=== PATIENT | female | born 1965 | race Two or more races ===

== ENCOUNTER 2016-05-20 20:54 | Inpatient (IN) | payer OTHER ==
[~2016-05-20] VITALS: Ht 160 cm; Wt 99.4 kg
[~2016-05-20 20:54] MED LIST: ACET325T9 PO; DIAZ5TAB PO; GLIM2TAB2 PO; INSU100V13 SQ; METF10002 PO; OLME40TA PO; ONDA4TAB7 PO; OXYC-323 PO; SIMV40TA3 PO
[2016-05-20 21:28] LABS: BASO # 0.1 x10^3/uL (0.0-0.2); BASO % 1 % (0-3); EOS % 1 % (0-3); HEMATOCRIT 40.6 % (36.0-47.0); HEMOGLOBIN 13.6 g/dL (12.0-15.5); LYMPH # 3.2 x10^3/uL (1.0-4.8); LYMPH % 27 % (24-48); MEAN CORPUSCULAR HEMOGLOBIN 31 pg (25-35); MEAN CORPUSCULAR HGB CONC 33 g/dL (31-37); MEAN CORPUSCULAR VOLUME 92 fL (79-100); MONO % 6 % (0-9); NEUT % 66 % (31-73); PLATELET COUNT 221 x10^3/uL (140-400); RED BLOOD COUNT 4.44 x10^6/uL (3.50-5.40); RED CELL DISTRIBUTION WIDTH 12.3 % (11.5-14.5); WHITE BLOOD COUNT 12.2 x10^3/uL (4.0-11.0)
[2016-05-20 21:37] LABS: INR 1.2 (0.8-1.1); PROTHROMBIN TIME PATIENT 14.3 SEC (11.7-14.0)
[2016-05-20 22:03] LABS: BILIRUBIN,URINE NEGATIVE (NEG); GLUCOSE,URINE >=1000 mg/dL (NEG); NITRITE,URINE NEGATIVE (NEG); PH,URINE 6.5; PROTEIN,URINE NEGATIVE (NEG-TRACE)
[2016-05-20 22:08] LABS: BACTERIA,URINE 0 /HPF (0-FEW); RBC,URINE 0 /HPF (0-2); SQUAMOUS EPITHELIAL CELL,UR FEW /LPF
[2016-05-20 22:09] LABS: BARBITURATES NEG (NEG); BENZODIAZEPINES NEG (NEG); CANNABINOIDS NEG (NEG); COCAINE NEG (NEG); ETHANOL, URINE NEG (NEG); METHADONE NEG (NEG); OPIATES NEG (NEG); PHENCYCLIDINE NEG (NEG)
[2016-05-20 22:31] LABS: CALCIUM 8.9 mg/dL (8.5-10.1); CREATININE 0.8 mg/dL (0.6-1.0); GFR 75.6; POTASSIUM 4.1 mmol/L (3.5-5.1)
[2016-05-20 22:37] LABS: ALBUMIN 3.3 g/dL (3.4-5.0); ALBUMIN/GLOBULIN RATIO 0.8 (1.0-1.7); TOTAL BILIRUBIN 0.3 mg/dL (0.2-1.0); TOTAL PROTEIN 7.3 g/dL (6.4-8.2)
--- NOTE | 2016-05-20 22:41 | ED.ADGEN ---
Past Medical History Past Medical History: Diabetes-Type II, High Cholesterol, Hypertension Past Surgical History: Other Additional Past Surgical Histo: gall stone Alcohol Use: None Drug Use: None Adult General Chief Complaint Chief Complaint: CHEST PAIN HPI HPI Patient is a 50 year old woman, history of type 2 diabetes mellitus, hypertension, hyperlipidemia, who presents emergency department with multiple complaints. Patient states that yesterday she began experiencing headache, some blurry vision, and chest pain located in her left upper chest, she states that the pain is worse with deep inspiration, she states that she was also experiencing some tingling and numbness in her left arm, and some also in her left leg. She denies any injuries, states that she also some mild headache, and a cough, denies any productive sputum, complains of subjective fever at home, no chills, also complaining of increased urination and some pain with urination , no diarrhea, no back pain or flank pain, states that she is also having some shortness of breath. Has been ambulating without issue, denies recent travel or surgery, and history of DVT or PE, any swelling extremities. Patient states that her sugars have been running high at home, up to 500 yesterday presents report, were the 300s today. She states that the chest heaviness, and the other symptoms of been constant since it began yesterday morning. Review of Systems Review of Systems Constitutional: Denies fever or chills. [] Eyes: Denies change in visual acuity. [] HENT: Denies nasal congestion or sore throat. [] Respiratory: Cough, nonproductive, pain with deep inspiration. Cardiovascular: Denies edema. [] Left upper chest pain, worse with motion and easements ration, radiating into the left arm. Pain and numbness in the left leg. GI: Denies nausea, vomiting, bloody stools or diarrhea. [] Suprapubic abdominal pain. Frequency and urgency. : Denies dysuria. [] Musculoskeletal: Denies back pain or joint pain. [] Integument: Denies rash. [] Neurologic: Denies headache, focal weakness or sensory changes. [] Endocrine: Denies polyuria or polydipsia. [] Lymphatic: Denies swollen glands. [] Psychiatric: Denies depression or anxiety. [] Current Medications Current Medications Current Medications Medications (Trade) Dose Ordered Sig/Dima Start Time Stop Time Status Last Admin Dose Admin Acetaminophen (Tylenol) 650 mg PRN Q4HRS PRN 05/21/16 01:00 05/22/16 00:59 Aspirin (Children'S Aspirin) 324 mg 1X ONCE 05/21/16 01:00 05/21/16 01:01 DC 05/21/16 00:43 324 MG Dextrose 12.5 gm PRN Q15MIN PRN 05/21/16 01:00 Fentanyl Citrate (Fentanyl 2ml Vial) 25 mcg PRN Q15MIN PRN 05/21/16 00:30 05/22/16 00:29 Info (Do NOT chart on this entry -- for MONITORING) 1 each PRN DAILY PRN 05/20/16 23:15 05/22/16 23:14 Insulin Aspart (Novolog) 0-5 UNITS TIDWMEALS 05/21/16 08:00 Iohexol (Omnipaque 350 Mg/ml) 90 ml 1X ONCE 05/20/16 23:30 05/20/16 23:31 DC Nitroglycerin (Nitrostat) 0.4 mg PRN Q5MIN PRN 05/21/16 01:00 Ondansetron HCl (Zofran) 4 mg PRN Q8HRS PRN 05/21/16 01:00 05/22/16 00:59 Allergies Allergies Allergies Coded Allergies Type Severity Reaction Last Updated Verified No Known Drug Allergies 11/04/15 No Physical Exam Physical Exam Constitutional: Well developed, well nourished, no acute distress, non-toxic appearance. [] HENT: Normocephalic, atraumatic, bilateral external ears normal, oropharynx moist, no oral exudates, nose normal. [] Eyes: PERRLA, EOMI, conjunctiva normal, no discharge. [] Neck: Normal range of motion, no tenderness, supple, no stridor. [] Cardiovascular:Heart rate regular rhythm, no murmur , S1, S2, no rubs or gallops. Patient with chest wall tenderness, which is reproducing her pain with palpation. [] Lungs & Thorax: Bilateral breath sounds clear to auscultation, no wheezing, rhonchi, rales. [] Abdomen: Bowel sounds normal, obese, soft, no tenderness, no rebound, rigidity, no guarding no masses, no pulsatile masses. [] Skin: Warm, dry, no erythema, no rash. [] Back: No tenderness, no CVA tenderness. [] Extremities: No tenderness, no cyanosis, no clubbing, ROM intact, no edema. [] Neurologic: Alert and oriented X 3, normal motor function, 5 out of 5 strength with normal fine motor control in all extremities, patient of lanes of decreased sensation in the left arm and left leg throughout, normal sensation and motion of the right upper and lower extremity. Psychologic: Affect normal, judgement normal, mood normal. [] Current Patient Data Vital Signs Vital Signs Date Time Temp Pulse Resp B/P Pulse Ox O2 Delivery O2 Flow Rate FiO2 05/21/16 00:45 48 16 139/63 98 Room Air 05/20/16 23:45 1 05/20/16 21:00 97.8 97.8 Lab Values Laboratory Tests Test 05/20/16 21:20 05/20/16 21:55 White Blood Count 12.2x10^3/uL (4.0-11.0) H Red Blood Count 4.44x10^6/uL (3.50-5.40) Hemoglobin 13.6g/dL (12.0-15.5) Hematocrit 40.6% (36.0-47.0) Mean Corpuscular Volume 92fL (79-100) Mean Corpuscular Hemoglobin 31pg (25-35) Mean Corpuscular Hemoglobin Concent 33g/dL (31-37) Red Cell Distribution Width 12.3% (11.5-14.5) Platelet Count 221x10^3/uL (140-400) Neutrophils (%) (Auto) 66% (31-73) Lymphocytes (%) (Auto) 27% (24-48) Monocytes (%) (Auto) 6% (0-9) Eosinophils (%) (Auto) 1% (0-3) Basophils (%) (Auto) 1% (0-3) Neutrophils # (Auto) 8.0x10^3uL (1.8-7.7) H Lymphocytes # (Auto) 3.2x10^3/uL (1.0-4.8) Monocytes # (Auto) 0.7x10^3/uL (0.0-1.1) Eosinophils # (Auto) 0.1x10^3/uL (0.0-0.7) Basophils # (Auto) 0.1x10^3/uL (0.0-0.2) Prothrombin Time 14.3SEC (11.7-14.0) H Prothrombin Time INR 1.2 (0.8-1.1) H PTT 32SEC (24-38) Sodium Level 140mmol/L (136-145) Potassium Level 4.1mmol/L (3.5-5.1) Chloride Level 102mmol/L (98-107) Carbon Dioxide Level 30mmol/L (21-32) Anion Gap 8 (6-14) Blood Urea Nitrogen 16mg/dL (7-20) Creatinine 0.8mg/dL (0.6-1.0) Estimated GFR (Cockcroft-Gault) 75.6 BUN/Creatinine Ratio 20 (6-20) Glucose Level 410mg/dL (70-99) H Calcium Level 8.9mg/dL (8.5-10.1) Total Bilirubin 0.3mg/dL (0.2-1.0) Aspartate Amino Transferase (AST) 62U/L (15-37) H Alanine Aminotransferase (ALT) 133U/L (14-59) H Alkaline Phosphatase 119U/L (46-116) H Troponin I Quantitative < 0.017ng/mL (0.000-0.055) ON-Ksn-W-Type Natriuretic Peptide 41pg/mL (0-124) Total Protein 7.3g/dL (6.4-8.2) Albumin 3.3g/dL (3.4-5.0) L Albumin/Globulin Ratio 0.8 (1.0-1.7) L Lipase 276U/L (73-393) Urine Collection Type Unknown Urine Color Yellow Urine Clarity Clear Urine pH 6.5 Urine Specific Renner >=1.030 Urine Protein Negativemg/dL (NEG-TRACE) Urine Glucose (UA) >=1000mg/dL (NEG) Urine Ketones (Stick) Negativemg/dL (NEG) Urine Blood Negative (NEG) Urine Nitrite Negative (NEG) Urine Bilirubin Negative (NEG) Urine Urobilinogen Dipstick 1.0mg/dL (0.2 mg/dL) Urine Leukocyte Esterase Small (NEG) Urine RBC 0/HPF (0-2) Urine WBC 5-10/HPF (0-4) Urine Squamous Epithelial Cells Few/LPF Urine Bacteria 0/HPF (0-FEW) Urine Opiates Screen Neg (NEG) Urine Methadone Screen Neg (NEG) Urine Barbiturates Neg (NEG) Urine Phencyclidine Screen Neg (NEG) Urine Amphetamine/Methamphetamine Neg (NEG) Urine Benzodiazepines Screen Neg (NEG) Urine Cocaine Screen Neg (NEG) Urine Cannabinoids Screen Neg (NEG) Urine Ethyl Alcohol Neg (NEG) Laboratory Tests 05/20/16 21:20 Laboratory Tests 05/20/16 21:20 EKG EKG EC2103: Sinus rhythm, heart rate 54 bpm, left axis deviation, QTC of 387, ND of 144, QRS of 94, T-wave inversions noted in lead V3, aside from left axis deviation, no ST elevations or depressions, abnormal ECG, does not meet STEMI criteria. As interpreted by me. Radiology/Procedures Radiology/Procedures [] [facility] [address] [place] [address] IMAGING REPORT Signed PATIENT: FREDI POOL I ACCOUNT: [id number] : 1965 LOCATION: ER AGE: 50 SEX: F EXAM STATUS: REG ER ORD. PHYSICIAN: CHINEDU JASSO DO REASON: chest pain/left upper left lower extremity numbness/rule out dissection PROCEDURE: CTA CHEST ABD PELVIS PROCEDURE CT angiogram chest abdomen and pelvis with and without contrast. HISTORY Left chest pain, left arm and left leg numbness, tingling. TECHNIQUE Helical CT imaging of the chest abdomen and pelvis is performed before and after 90 cc Omnipaque 350 IV contrast using angiogram protocol. 3D MIP and volume rendering reconstructions of the aorta performed. PQRS: One or more the following individualized dose reduction techniques were utilized for the study: 1. Automated exposure control. 2. Adjustment of the mA and/or kV according to patient size. 3. Use of iterative reconstruction technique. COMPARISON None. FINDINGS On the precontrast images, no intramural hematoma is seen in the aorta. Small amount of contrast is seen in the upper collecting system of the kidneys but not in the renal parenchyma, correlate to other recent imaging. Aortic arch branches are patent. There is pulsation artifact of the aortic root. There is no thoracic or abdominal aortic dissection. The thoracic aorta is normal caliber. Abdominal aorta branches are patent. No significant narrowing of the iliac arteries. Common femoral and is visualized superficial femoral and profunda arteries are patent. Minimal atherosclerotic disease of the distal abdominal aorta just above the bifurcation. There is a 7 millimeter hypodense left thyroid nodule. No adenopathy in the chest. Cardiac size upper limits of normal, no pericardial effusion. No pleural effusion. The central airways are patent. Respiratory motion artifact. Mild dependent atelectasis in the lower lobes. Mild fatty infiltration of the liver. There is hepatomegaly or normal variant Reidel lobe, craniocaudal dimension 23.7 cm. Cholecystectomy. The spleen, pancreas, adrenal glands, and kidneys are normal. No obvious abnormality of the stomach. Evaluation of bowel may be limited without oral contrast. There is a large fat containing periumbilical hernia. No dilated small bowel. Moderate stool throughout the colon. No evidence of colitis. No secondary signs of appendicitis. Urinary bladder is not thick walled. Ovaries are symmetric. Uterus homogeneous. No pelvic free fluid. Degenerative endplate spurring in the thoracic spine. No compression fracture is seen. IMPRESSION 1. The aorta is normal caliber. There is no dissection. 2. 7 millimeter left thyroid nodule. 3. Mild fatty infiltration of the liver. Hepatomegaly versus normal variant Reidel lobe. 4. Large fat containing periumbilical hernia. 5. Moderate colon stool volume. Electronically signed by: Marito Sheehan MD (May 21, 2016 00:01:08) DICTATED and SIGNED BY: MARITO SHEEHAN MD DATE: 05/21/16 0001 CC: MARIANO SMITH APRN; CHINEDU JASSO DO ~ Impressions: [facility] [address] [place] [address] IMAGING REPORT Signed PATIENT: FREDI POOL I ACCOUNT: [id number] : 1965 LOCATION: ER AGE: 50 SEX: F EXAM STATUS: REG ER ORD. PHYSICIAN: CHINEDU JASSO DO REASON: Larm/leg numbness/SOLORZANO PROCEDURE: HEAD WO CONTRAST PROCEDURE CT head without intravenous contrast. HISTORY Left chest arm and leg pain beginning tonight. Headache and numbness. TECHNIQUE Axial images are obtained of the head from the skull base through the vertex without IV contrast Exposure: One or more of the following individualized dose reduction techniques were utilized for this examination: 1. Automated exposure control. 2. Adjustment of the mA and/or kV according to patient size. 3. Use of iterative reconstruction technique. COMPARISON CT head August 25, 2009. FINDINGS The ventricles are appropriate in size, shape, and location for the patient's age.No obvious intracranial mass, mass-effect, midline shift, hemorrhage or obvious acute infarction is identified.Basilar cisterns are patent. Bone windows demonstrate no acute calvarial abnormality.The visualized paranasal sinuses appear clear. IMPRESSION No acute intracranial process. Please note that CT can be relatively insensitive to acute ischemic infarction for up to 24 hours after symptom onset. Electronically signed by: Mp Hatfield MD (May 20, 2016 22:47:36) DICTATED and SIGNED BY: MP HATFIELD MD DATE: 05/20/16 2247 CC: MARIANO SMITH APRN; CHINEDU JASSO DO ~ Course & Med Decision Making Course & Med Decision Making Pertinent Labs and Imaging studies reviewed. (See chart for details) Due to patient's complaints of both neurological abnormalities, and chest pain, CT of the head initially obtained along with chest x-ray which was unremarkable. Pulses equal bilaterally, patient does have pain radiating from the chest through to the back, although x-ray is unremarkable, with this complaint, with the neurologic complaints, CT of the chest abdomen pelvis ordered to rule out possible dissection. Patient's blood pressures remained stable in the emergency department. I did discuss this with patient and family and they're in agreement. CT of the chest abdomen pelvis did not reveal any evidence of acute abnormalities. I did review these findings with patient and family, patient has received aspirin at this point, is ordered pain medication, denies any new or different symptoms. She is agreeable for admission to the hospital for continued evaluation with cardiology, Dr. Espinoza consult at after discussing with Dr. Lizarraga of internal medicine, who accepted the patient to her service as a full admission to the cardiac telemetry floor. After this discussion, patient's then stated to me that the patient's father several days ago, and the occurred earlier today, which may be contributing to the symptoms that she is experiencing. As the patient has not previously had a cardiac evaluation, and has a medical history complicated by hypertension, and diabetes mellitus, we'll proceed with plan as above. At this time the patient is resting comfortably. Remained stable on the monitor. Dragon Disclaimer Dragon Disclaimer This electronic medical record was generated, in whole or in part, using a voice recognition dictation system. Departure Impression: Primary Impression: Chest pain Additional Impressions: Dizziness Extremity numbness Disposition: ADMITTED INPATIENT Admitting Physician: Sadiq Robles Condition: IMPROVED Problem Qualifiers Primary Impression: Chest pain Chest pain type: unspecified Qualified Code: R07.9 - Chest pain, unspecified CHINEDU JASSO DO May 20, 2016 22:41
--- NOTE | 2016-05-20 22:48 | RAD ---
PROCEDURE CT head without intravenous contrast. HISTORY Left chest arm and leg pain beginning tonight. Headache and numbness. TECHNIQUE Axial images are obtained of the head from the skull base through the vertex without IV contrast Exposure: One or more of the following individualized dose reduction techniques were utilized for this examination: 1. Automated exposure control. 2. Adjustment of the mA and/or kV according to patient size. 3. Use of iterative reconstruction technique. COMPARISON CT head August 25, 2009. FINDINGS The ventricles are appropriate in size, shape, and location for the patient's age.No obvious intracranial mass, mass-effect, midline shift, hemorrhage or obvious acute infarction is identified.Basilar cisterns are patent. Bone windows demonstrate no acute calvarial abnormality.The visualized paranasal sinuses appear clear. IMPRESSION No acute intracranial process. Please note that CT can be relatively insensitive to acute ischemic infarction for up to 24 hours after symptom onset. Electronically signed by: Mp Anand MD (May 20, 2016 22:47:36)
[2016-05-20] MEDS ORDERED: CONTRAST GIVEN MC PRN (23:15)
[2016-05-20] MEDS ORDERED: IOHEXOL 350 MG/ML 100ML VIAL. IV ONE (23:30)
[2016-05-21] VITALS (7 sets, daily range): BP systolic 102–156; BP diastolic 51–85
--- NOTE | 2016-05-21 00:02 | RAD ---
PROCEDURE CT angiogram chest abdomen and pelvis with and without contrast. HISTORY Left chest pain, left arm and left leg numbness, tingling. TECHNIQUE Helical CT imaging of the chest abdomen and pelvis is performed before and after 90 cc Omnipaque 350 IV contrast using angiogram protocol. 3D MIP and volume rendering reconstructions of the aorta performed. PQRS: One or more the following individualized dose reduction techniques were utilized for the study: 1. Automated exposure control. 2. Adjustment of the mA and/or kV according to patient size. 3. Use of iterative reconstruction technique. COMPARISON None. FINDINGS On the precontrast images, no intramural hematoma is seen in the aorta. Small amount of contrast is seen in the upper collecting system of the kidneys but not in the renal parenchyma, correlate to other recent imaging. Aortic arch branches are patent. There is pulsation artifact of the aortic root. There is no thoracic or abdominal aortic dissection. The thoracic aorta is normal caliber. Abdominal aorta branches are patent. No significant narrowing of the iliac arteries. Common femoral and is visualized superficial femoral and profunda arteries are patent. Minimal atherosclerotic disease of the distal abdominal aorta just above the bifurcation. There is a 7 millimeter hypodense left thyroid nodule. No adenopathy in the chest. Cardiac size upper limits of normal, no pericardial effusion. No pleural effusion. The central airways are patent. Respiratory motion artifact. Mild dependent atelectasis in the lower lobes. Mild fatty infiltration of the liver. There is hepatomegaly or normal variant Reidel lobe, craniocaudal dimension 23.7 cm. Cholecystectomy. The spleen, pancreas, adrenal glands, and kidneys are normal. No obvious abnormality of the stomach. Evaluation of bowel may be limited without oral contrast. There is a large fat containing periumbilical hernia. No dilated small bowel. Moderate stool throughout the colon. No evidence of colitis. No secondary signs of appendicitis. Urinary bladder is not thick walled. Ovaries are symmetric. Uterus homogeneous. No pelvic free fluid. Degenerative endplate spurring in the thoracic spine. No compression fracture is seen. IMPRESSION 1. The aorta is normal caliber. There is no dissection. 2. 7 millimeter left thyroid nodule. 3. Mild fatty infiltration of the liver. Hepatomegaly versus normal variant Reidel lobe. 4. Large fat containing periumbilical hernia. 5. Moderate colon stool volume. Electronically signed by: Marito Sheehan MD (May 21, 2016 00:01:08)
[2016-05-21] MEDS ORDERED: NITROGLYCERIN SUBLINGUAL 0.4 MG BOTTLE OF 25. SL PRN ×2 (00:30→01:00)
[2016-05-21] MEDS ORDERED: FENTANYL PF 100 MCG/2 ML VIAL. IV PRN (00:30)
[2016-05-21] MEDS ORDERED: ASPIRIN 81 MG TAB.CHEW PO ONE (01:00)
[2016-05-21] MEDS ORDERED: ONDANSETRON PF 4 MG/2 ML VIAL. IV PRN ×2 (01:00→10:30)
[2016-05-21] MEDS ORDERED: ACETAMINOPHEN 325 MG TABLET. PO PRN ×2 (01:00→10:30)
[2016-05-21] MEDS ORDERED: DEXTROSE 50% 25 GM / 50ML DISP.SYRIN. IV PRN ×2 (01:00→10:30)
[2016-05-21] MEDS ORDERED: ATOR10TA60 PO (01:48)
[2016-05-21] MEDS ORDERED: AZIT250T6 PO (01:50)
[2016-05-21] MEDS ORDERED: INSU100I27 SQ ×2 (01:53)
[2016-05-21] MEDS ORDERED: SITA100T PO (01:53)
[2016-05-21] MEDS ORDERED: INFLUENZA VAX SCREEN BY RX. MC ONE (02:00)
[2016-05-21] MEDS ORDERED: PNEUMOCOCCAL VAX SCREEN BY RX. MC ONE (02:00)
--- NOTE | 2016-05-21 02:02 | ACF ---
Admission Forms Criteria CARDIOLOGY GRG Clinical Indications for Admission to Inpatient Care ( Place 'X' for any and all applicable criteria): Hospital admission is needed for appropriate care of the patient because of ANY ONE of the following (1): [ ] I. Hemodynamic instability as indicated by ALL of the following (1)(2)(3) (4)(5) [ ]a) Vital signs or other findings not as expected for chronic patient condition or baseline [ ]b) Instability indicated by ANY ONE of the following: [ ]i) Hypotension [ ]ii) Symptomatic Tachycardia unresponsive to treatment ( e.g., analgesia, fluids, sedation as indicated) [ ]iii) Inadequate perfusion indicated by ANY ONE of the following: [ ] 1) Lactic acidosis (> 2 mmol/L) [ ] 2) New abnormal capillary refill (> 3 seconds) [ ] 3) Reduced urine output [ ] 4) New altered mental status [ ]iv) Orthostatic vital sign changes unresponsive to treatment (e.g., fluids) [ ]v) IV inotropic or vasopressor medication required to maintain adequate blood pressure or perfusion [ ] II. Severe heart failure as indicated by ANY ONE of the following(17)(18) [ ]a) Respiratory distress [ ]b) Hypotension [ ]c) Anasarca (refractory to outpatient therapy) [ ]d) Cardiac arrhythmias of immediate concern [ ]e) Myocardial ischemia [ ] III. Cardiac arrhythmias or findings of immediate concern indicated by ANY ONE of the following (19)(20): [ ] a) Heart rhythms that are inherently dangerous or unstable indicated by ANY ONE of the following (21)(22)(23): [ ] i) Resuscitated ventricular fibrillation or cardiac arrest [ ] ii) Ventricular escape rhythm [ ] iii) Sustained ventricular tachycardia (30 seconds or more of ventricular rhythm at greater than 100 beats per minute) [ ] iv) Nonsustained ventricular tachycardia and ANY ONE of the following: [ ] 1) Suspected cardiac ischemia as cause or consequence of ventricular tachycardia [ ] 2) In setting of acute myocarditis [ ] b) Unstable cardiac conduction defects indicated by ANY ONE of the following(23)(24)(25) [ ] i) Type II second-degree atrioventricular block [ ]ii) Third-degree atrioventricular block [ ]iii) New-onset left bundle branch block with suspected myocardial ischemia [ ]c) Any heart rhythm and ANY ONE of the following (21)(22)(26)(27) (28) [ ] i) Continuous long-term ECG monitoring needed (e.g., initiation of drug requiring monitoring for more than 24 hours) [ ] ii) Patient has automatic implanted cardioverter defibrillator that is repeatedly firing, malfunctioning, or in need of immediate adjustment of settings beyond the scope of ambulatory or observation care [ ]d) Heart rhythms of concern due to ANY ONE of the following: [ ] i) Hypotension [ ] ii) Respiratory distress [ ] iii) Association with other significant symptoms (e.g., bradycardia with syncope or ongoing dizziness, supraventricular tachycardia with chest pain (14)(15)(17) [ ] IV. Monitoring for cardiac contusion beyond the scope of observation care needed [A](30)(31)(32) [ ] V. Surgical or device complication (e.g., valve replacement complication , pacemaker dysfunction) (35)(41)(44)(45)(46) [ ] . Inpatient palliative care needed. [B](49) Also use Inpatient Palliative Care Criteria [ ] VII. Nonbacterial thrombotic (marantic) endocarditis (36)(43)(47)(48) [ X] VIII. Cardiology condition, symptom, or finding for which emergency and observation care has failed or are not considered appropriate. [ ] IX. Acute valvular disease requiring inpatient as indicated by ANY ONE of the following (41) [ ]a) Acute valvular regurgitation (42) [ ]b) Noninfectious valvulitis (43) [ ]c) Obstructive valve thrombosis [ ]d) Paravalvular leak [ ]e) Other significant valvular disorder remaining after emergency or observation level of care (as appropriate) [ ]X. Pericardial disease requiring inpatient treatment as indicated by ANY ONE of the following (33)(34)(35)(36)(37) [ ]a) Suspected tamponade (38)(39)(40) [ ]b) Hemopericardium [ ]c) Other significant pericardial disorder remaining after emergency or observation level of care (as appropriate) [ ] XI. Cardiac ischemia beyond scope of emergency and observation care. [ ] XII. Hypertension requiring inpatient treatment as indicated by ANY ONE of the following (6)(7)(8) [ ]a) SBP greater than 220 mm Hg or DBP greater than 120 mmHg despite treatment [ ]b) SBP greater than 140 mm Hg or DBP greater than 100 mm Hg with evidence of acute end organ damage as indicated by ANY ONE of the following [ ] i) Encephalopathy [ ] ii) Acute renal failure as indicated by new onset of ANY ONE of the following (9)(10)(11)(12)(13) [ ]1) 3-fold rise in serum creatinine from baseline [ ]2) Serum creatinine greater than 4 mg/dL ( 354 micromoles/L) with acute rise greater than 0.5 mg/dL (44.2 micromoles/L) [ ]3) Reduction of more than 75% in estimated glomerular filtration rate from baseline [ ]4) Estimated glomerular filtration rate less than 35 mL/min/1.73m2 (0.59 mL/sec/1.73m2) in child up to 18 years of age [ ]5) Cessation of urine output indicated by ALL of the following [ ]A. Adequate volume status [ ]B. Inadequate urine output as indicated by ANY ONE of the following [ ]a. Urine output less than 0.3 mL/kg/hr for 24 hours [ ]b. Anuria (urine output less than 0.1 mL/kg/hr) for 12 hours [ ] iii) Aortic dissection [ ] iv) Myocardial Ischemia [ ] v) Left ventricular heart failure [ ]vi) Retinal Hemorrhage [ ]vii) Other significant finding [ ]c) Hypertension in child requiring inpatient treatment as indicated by ALL of the following(14)(15)(16) [ ] i) Outpatient treatment not effective, not available, or not appropriate [ ]ii) SBP or DBP greater than 95th percentile for age [ ]iii) Evidence of acute end organ damage as indicated by ANY ONE of the following [ ]1) Altered mental status [ ]2) Acute renal failure as indicated by new onset of ANY ONE of the following(9)(10)(11)(12)(13) [ ]A. 3-fold rise in serum creatinine from baseline [ ]B. Serum creatinine greater than 4 mg/dL (354 micromoles/L) with acute rise greater than 0.5 mg/dL (44.2 micromoles/L) [ ]C. Reduction of more than 75% in estimated glomerular filtration rate from baseline [ ]D. Estimated glomerular filtration rate less than 35 mL/min/1.73m2 (0.59 mL/sec/1.73m2) in child up to 18 years of age [ ]E. Cessation of urine output indicated by ALL of the following [ ]a. Adequate volume status [ ]b. Inadequate urine output as indicated by ANY ONE of the following [ ]i) Urine output less than 0.3 mL/kg/hr for 24 hours [ ]ii) Anuria ( urine output less than 0.1 mL/kg/hr) for 12 hours [ ]3) Severe headache [ ]4) Visual disturbance [ ]5) Retinal hemorrhage [ ]6) Other significant finding [ ]XIII. Complications of transplanted heart indicated by ANY ONE of the following(61): [ ]a) Acute graft rejection requiring inpatient management (eg, intravenous immunosuppression)(62)(63) [ ]b) Acute graft heart failure indicated by ANY ONE of the following(64): [ ]i) Hemodynamic instability [ ]ii) Cardiac arrhythmias of immediate concern [ ]iii) Pulmonary edema that is very severe (eg, mechanical ventilation needed, imminent or likely, need for 100% oxygen to keep oxygen saturation above 90%) [ ]iv) Pulmonary edema that is persistent as indicated by ALL of the following: [ ]1) New need for oxygen therapy to keep oxygen saturation above 90% (or increased FiO2 need from baseline) [ ]2) Has not improved sufficiently with emergency department or observation care IV diuretics or other heart failure treatments[E] [ ]v) Altered mental status that is severe or persistent [ ]vi) Increased creatinine (new on laboratory test) with reduction of more than 50% in estimated glomerular filtration rate from baseline [ ]vii) Progressively (ongoing) rising creatinine (known from past laboratory test) with reduction of more than 25% in estimated glomerular filtration rate from baseline [ ]viii) Acute renal failure [ ]ix) Acute peripheral ischemia (eg, examination shows pulseless, cool, mottled, or cyanotic extremity) [ ]x) Pulmonary artery catheter monitoring needed [ ]xi) Other sign or symptom of heart failure requiring inpatient treatment (ie, too severe or not responsive to outpatient and observation care treatment) [ ]c) Infection requiring inpatient management (eg, Hemodynamic instability, need for intravenous antimicrobial treatment)(66)(67)(68)(69)(70) [ ]d) Cardiac allograft vasculopathy requiring inpatient management ( eg evidence of cardiac ischemia)(71) [ ]e) Other complication of transplanted heart (eg, stroke, severe pulmonary hypertension, severe valvular dysfunction) requiring inpatient management(72) The original [facility] content created by [facility] has been revised. The portions of the content which have been revised are identified through the use of italic text or in bold, and [facility] has neither reviewed nor approved the modified material. All other unmodified content is copyright [facility]. Please see references footnoted in the original [facility] edition 2016 Admission Criteria Met?: Yes ALECIA AVILA May 21, 2016 02:02
--- NOTE | 2016-05-21 02:12 | EKG ---
[facility] [address] [place] [address] Test Date: 2016-05-20 Test Time: 21:04:27 Pat Name: FREDI POOL Department: Room: Gender: F Network Operations Manager: : 1965 Requested By: CHINEDU JASSO Order Number: [id number] Reading MD: Measurements Intervals Dike Rate: 54 P: 45 OH: 144 QRS: -28 QRSD: 94 T: 8 QT: 402 QTc: 387 Interpretive Statements SINUS RHYTHM LEFTWARD AXIS R-S TRANSITION ZONE IN V LEADS DISPLACED TO THE LEFT RI6.01 Unconfirmed report No previous ECG available for comparison
[2016-05-21] MEDS ORDERED: INSULIN ASPART 300 UNITS/3 ML INSULN.PEN SQ SCH (08:00)
--- NOTE | 2016-05-21 08:19 | RAD ---
Indication chest pain. A single view of the chest was obtained and is compared to a study 08/24/2009. Heart size is at the upper limits of normal. There is no congestive heart failure. A focal infiltrate is not seen. There are perhaps tiny pleural effusions. There is no pneumothorax. There is a healed right rib fracture. IMPRESSION: No acute finding apparent in the chest
[2016-05-21] MEDS ORDERED: FLU VACC QUAD 2016-17 (36MOS+)/PF 0.5 ML SYRINGE. VAX IM ONE (09:00)
[2016-05-21] MEDS ORDERED: PNEUMOC CONJ VACC 23-VALENT 0.5 ML VIAL. VAX IM ONE (09:00)
[2016-05-21] MEDS: LINAGLIPTIN 5 MG TABLET PO SCH (12:44)
[2016-05-21] MEDS: ASPIRIN 81 MG TAB.CHEW PO SCH (12:45)
[2016-05-21] MEDS: LOSARTAN POTASSIUM 50 MG TABLET. PO SCH (12:45)
[2016-05-21] MEDS: INSULIN ASPART 300 UNITS/3 ML INSULN.PEN SQ SCH ×5 (12:49→20:15)
[2016-05-21] MEDS: INSULIN DETEMIR 300 UNITS/3 ML INSULN.PEN. SQ SCH ×2 (12:51→20:16)
--- NOTE | 2016-05-21 13:39 | PDOC1 ---
History and Physical Date of Admission Date of Admission 05/21/16 Identification/Chief Complaint Chief Complaint chest pain Problems: Source Source: Caregiver, Chart review, Patient History of Present Illness History of Present Illness HPI HPI Patient is a 50 year old woman, history of type 2 diabetes mellitus, hypertension, hyperlipidemia, comes to ER for chest pain for 2 days. Her dad and was buried yesterday. Indonesian speaking. translated, saying she started to feel left side chest pain, heavy, no radiating, but left fingers numbness, wo nausea, diaphoresis. had some sob and cough. The pain happenes any time. + tenderness. not controlled Dm2 ON LEVEmir 25/20u bid. has GERD, but saying they are different pain. Past Medical History Cardiovascular: HTN Endocrine: Diabetes Past Surgical History Past Surgical History: Cholecystectomy Current Problem List Problem List Problems Medical Problems: (1) Chest pain Status: Acute (2) Dizziness Status: Acute (3) Extremity numbness Status: Acute Current Medications Current Medications Current Medications Medications (Trade) Dose Ordered Sig/Dima Start Time Stop Time Status Last Admin Dose Admin Acetaminophen (Tylenol) 650 mg PRN Q6HRS PRN 05/21/16 10:30 Aspirin (Children'S Aspirin) 81 mg [id number] 05/21/16 11:00 05/21/16 12:45 81 MG Atorvastatin Calcium (Lipitor) 10 mg HS 05/21/16 21:00 Dextrose 12.5 gm PRN Q15MIN PRN 05/21/16 10:30 Fentanyl Citrate (Fentanyl 2ml Vial) 25 mcg PRN Q15MIN PRN 05/21/16 00:30 05/22/16 00:29 Glimepiride (Amaryl) 4 mg BID 05/21/16 21:00 Influenza Virus Vaccine Quadrival (Fluarix Quad [id number] Syringe) 0.5 ml ONCE ONCE 05/21/16 09:00 05/21/16 09:01 DC Info (Do NOT chart on this entry -- for MONITORING) 1 each PRN DAILY PRN 05/20/16 23:15 05/22/16 23:14 Info (Do NOT chart on this placeholder) 1X ONCE 05/21/16 02:00 05/21/16 02:01 UNV Insulin Aspart (Novolog) 5 units TIDAC 05/21/16 11:30 05/21/16 12:49 5 UNITS Insulin Detemir (Levemir) 25 units BID 05/21/16 11:00 05/21/16 12:51 25 UNITS Iohexol (Omnipaque 350 Mg/ml) 90 ml 1X ONCE 05/20/16 23:30 05/20/16 23:31 DC Linagliptin (Tradjenta) 5 mg DAILY 05/21/16 11:00 05/21/16 12:44 5 MG Losartan Potassium (Cozaar) 100 mg DAILY 05/21/16 11:00 05/21/16 12:45 100 MG Nitroglycerin (Nitrostat) 0.4 mg PRN Q5MIN PRN 05/21/16 01:00 Ondansetron HCl (Zofran) 4 mg PRN Q6HRS PRN 05/21/16 10:30 Pneumococcal Polyvalent Vaccine (Do NOT chart on this placeholder) 1X ONCE 05/21/16 02:00 05/21/16 02:01 UNV Pneumococcal Polyvalent Vaccine (Pneumovax 23) 0.5 ml ONCE ONCE 05/21/16 09:00 05/21/16 09:01 DC Allergies Allergies Allergies Coded Allergies Type Severity Reaction Last Updated Verified No Known Drug Allergies 11/04/15 No ROS Review of System CONSTITUTIONAL: No fever or chills EYES: No recent changes SKIN: No rash or itching CARDIOVASCULAR: No chest pain, syncope, palpitations, or edema RESPIRATORY: No SOB or cough GASTROINTESTINAL: No nausea, vomiting or abdominal pain NEUROLOGICAL: No headaches or weakness ENDOCRINE: No cold or heat intolerance GENITOURINARY: No urgency or frequency of urination MUSCULOSKELETAL: No back pain or joint pain LYMPHATICS: No enlarged lymph nodes PSYCHIATRIC: No anxiety or depression Physical Exam Physical Exam GEN.: No apparent distress. Alert and oriented. HEENT: Head is normocephalic, atraumatic NECK: Supple. LUNGS: Clear to auscultation. left upper chest tenderness HEART: RRR, S1, S2 present. Peripheral pulses intact ABDOMEN: Soft, nontender. Positive bowel sounds. EXTREMITIES: Without any cyanosis. NEUROLOGIC: Normal speech, normal tone PSYCHIATRIC: Normal affect, normal mood. SKIN: No ulcerations Vitals Vitals Vital Signs Date Time Temp Pulse Resp B/P Pulse Ox O2 Delivery O2 Flow Rate FiO2 05/21/16 12:45 64 134/63 05/21/16 10:47 97.2 18 100 Room Air 97.2 05/20/16 23:45 1 Labs Labs Laboratory Tests Test 05/20/16 21:20 05/20/16 21:55 05/21/16 02:45 05/21/16 08:00 White Blood Count 12.2x10^3/uL (4.0-11.0) Red Blood Count 4.44x10^6/uL (3.50-5.40) Hemoglobin 13.6g/dL (12.0-15.5) Hematocrit 40.6% (36.0-47.0) Mean Corpuscular Volume 92fL (79-100) Mean Corpuscular Hemoglobin 31pg (25-35) Mean Corpuscular Hemoglobin Concent 33g/dL (31-37) Red Cell Distribution Width 12.3% (11.5-14.5) Platelet Count 221x10^3/uL (140-400) Neutrophils (%) (Auto) 66% (31-73) Lymphocytes (%) (Auto) 27% (24-48) Monocytes (%) (Auto) 6% (0-9) Eosinophils (%) (Auto) 1% (0-3) Basophils (%) (Auto) 1% (0-3) Neutrophils # (Auto) 8.0x10^3uL (1.8-7.7) Lymphocytes # (Auto) 3.2x10^3/uL (1.0-4.8) Monocytes # (Auto) 0.7x10^3/uL (0.0-1.1) Eosinophils # (Auto) 0.1x10^3/uL (0.0-0.7) Basophils # (Auto) 0.1x10^3/uL (0.0-0.2) Prothrombin Time 14.3SEC (11.7-14.0) Prothromb Time International Ratio 1.2 (0.8-1.1) Activated Partial Thromboplast Time 32SEC (24-38) Sodium Level 140mmol/L (136-145) Potassium Level 4.1mmol/L (3.5-5.1) Chloride Level 102mmol/L (98-107) Carbon Dioxide Level 30mmol/L (21-32) Anion Gap 8 (6-14) Blood Urea Nitrogen 16mg/dL (7-20) Creatinine 0.8mg/dL (0.6-1.0) Estimated GFR (Cockcroft-Gault) 75.6 BUN/Creatinine Ratio 20 (6-20) Glucose Level 410mg/dL (70-99) Calcium Level 8.9mg/dL (8.5-10.1) Total Bilirubin 0.3mg/dL (0.2-1.0) Aspartate Amino Transf (AST/SGOT) 62U/L (15-37) Alanine Aminotransferase (ALT/SGPT) 133U/L (14-59) Alkaline Phosphatase 119U/L (46-116) Troponin I Quantitative < 0.017ng/mL (0.000-0.055) < 0.017ng/mL (0.000-0.055) < 0.017ng/mL (0.000-0.055) SD-Lil-F-Type Natriuretic Peptide 41pg/mL (0-124) Total Protein 7.3g/dL (6.4-8.2) Albumin 3.3g/dL (3.4-5.0) Albumin/Globulin Ratio 0.8 (1.0-1.7) Lipase 276U/L (73-393) Urine Collection Type Unknown Urine Color Yellow Urine Clarity Clear Urine pH 6.5 Urine Specific [place] >=1.030 Urine Protein Negativemg/dL (NEG-TRACE) Urine Glucose (UA) >=1000mg/dL (NEG) Urine Ketones (Stick) Negativemg/dL (NEG) Urine Blood Negative (NEG) Urine Nitrite Negative (NEG) Urine Bilirubin Negative (NEG) Urine Urobilinogen Dipstick 1.0mg/dL (0.2 mg/dL) Urine Leukocyte Esterase Small (NEG) Urine RBC 0/HPF (0-2) Urine WBC 5-10/HPF (0-4) Urine Squamous Epithelial Cells Few/LPF Urine Bacteria 0/HPF (0-FEW) Urine Opiates Screen Neg (NEG) Urine Methadone Screen Neg (NEG) Urine Barbiturates Neg (NEG) Urine Phencyclidine Screen Neg (NEG) Urine Amphetamine/Methamphetamine Neg (NEG) Urine Benzodiazepines Screen Neg (NEG) Urine Cocaine Screen Neg (NEG) Urine Cannabinoids Screen Neg (NEG) Urine Ethyl Alcohol Neg (NEG) Test 05/21/16 08:01 05/21/16 10:46 Glucose (Fingerstick) 230mg/dL (70-99) 290mg/dL (70-99) Laboratory Tests Test 05/20/16 21:20 05/20/16 21:55 05/21/16 02:45 05/21/16 08:00 White Blood Count 12.2x10^3/uL (4.0-11.0) Red Blood Count 4.44x10^6/uL (3.50-5.40) Hemoglobin 13.6g/dL (12.0-15.5) Hematocrit 40.6% (36.0-47.0) Mean Corpuscular Volume 92fL (79-100) Mean Corpuscular Hemoglobin 31pg (25-35) Mean Corpuscular Hemoglobin Concent 33g/dL (31-37) Red Cell Distribution Width 12.3% (11.5-14.5) Platelet Count 221x10^3/uL (140-400) Neutrophils (%) (Auto) 66% (31-73) Lymphocytes (%) (Auto) 27% (24-48) Monocytes (%) (Auto) 6% (0-9) Eosinophils (%) (Auto) 1% (0-3) Basophils (%) (Auto) 1% (0-3) Neutrophils # (Auto) 8.0x10^3uL (1.8-7.7) Lymphocytes # (Auto) 3.2x10^3/uL (1.0-4.8) Monocytes # (Auto) 0.7x10^3/uL (0.0-1.1) Eosinophils # (Auto) 0.1x10^3/uL (0.0-0.7) Basophils # (Auto) 0.1x10^3/uL (0.0-0.2) Prothrombin Time 14.3SEC (11.7-14.0) Prothromb Time International Ratio 1.2 (0.8-1.1) Activated Partial Thromboplast Time 32SEC (24-38) Sodium Level 140mmol/L (136-145) Potassium Level 4.1mmol/L (3.5-5.1) Chloride Level 102mmol/L (98-107) Carbon Dioxide Level 30mmol/L (21-32) Anion Gap 8 (6-14) Blood Urea Nitrogen 16mg/dL (7-20) Creatinine 0.8mg/dL (0.6-1.0) Estimated GFR (Cockcroft-Gault) 75.6 BUN/Creatinine Ratio 20 (6-20) Glucose Level 410mg/dL (70-99) Calcium Level 8.9mg/dL (8.5-10.1) Total Bilirubin 0.3mg/dL (0.2-1.0) Aspartate Amino Transf (AST/SGOT) 62U/L (15-37) Alanine Aminotransferase (ALT/SGPT) 133U/L (14-59) Alkaline Phosphatase 119U/L (46-116) Troponin I Quantitative < 0.017ng/mL (0.000-0.055) < 0.017ng/mL (0.000-0.055) < 0.017ng/mL (0.000-0.055) LX-Kqa-Q-Type Natriuretic Peptide 41pg/mL (0-124) Total Protein 7.3g/dL (6.4-8.2) Albumin 3.3g/dL (3.4-5.0) Albumin/Globulin Ratio 0.8 (1.0-1.7) Lipase 276U/L (73-393) Urine Collection Type Unknown Urine Color Yellow Urine Clarity Clear Urine pH 6.5 Urine Specific [place] >=1.030 Urine Protein Negativemg/dL (NEG-TRACE) Urine Glucose (UA) >=1000mg/dL (NEG) Urine Ketones (Stick) Negativemg/dL (NEG) Urine Blood Negative (NEG) Urine Nitrite Negative (NEG) Urine Bilirubin Negative (NEG) Urine Urobilinogen Dipstick 1.0mg/dL (0.2 mg/dL) Urine Leukocyte Esterase Small (NEG) Urine RBC 0/HPF (0-2) Urine WBC 5-10/HPF (0-4) Urine Squamous Epithelial Cells Few/LPF Urine Bacteria 0/HPF (0-FEW) Urine Opiates Screen Neg (NEG) Urine Methadone Screen Neg (NEG) Urine Barbiturates Neg (NEG) Urine Phencyclidine Screen Neg (NEG) Urine Amphetamine/Methamphetamine Neg (NEG) Urine Benzodiazepines Screen Neg (NEG) Urine Cocaine Screen Neg (NEG) Urine Cannabinoids Screen Neg (NEG) Urine Ethyl Alcohol Neg (NEG) Test 05/21/16 08:01 05/21/16 10:46 Glucose (Fingerstick) 230mg/dL (70-99) 290mg/dL (70-99) VTE Prophylaxis Ordered VTE Prophylaxis Devices: Yes VTE Pharmacological Prophylaxi: Yes Assessment/Plan Assessment/Plan 1. chest pain, likely 2/2 muscular pain 2. uncontrolled DM2 3. HTN 4. hld 5. sinus lawanda cardia, could be tachy at home 6. GERD 7. MORBID obesity 8. EARL 9. MILD malnutrition 10. SIRS wo infection 11. left thyroid nodule 7mm on CT plan: 1. fu with card, echo tmr 2. check lipid panel, cont lipitor 10mg for now check tsh, t4 CE neg 3. cont home meds, increase insulin levemir 25u bid, aspart 5u tid, SSI check hba1c cough meds dvt ppx GOPAL CORONEL MD May 21, 2016 13:39
[2016-05-21] MEDS ORDERED: ALBUTEROL SULFATE 2.5 MG/3 ML NEBU. NEB PRN (13:45)
[2016-05-21] MEDS ORDERED: hydrALAZINE 20 MG/ML VIAL. IVP PRN (13:45)
[2016-05-21] MEDS: GUAIFENESIN ER 600 MG TABLET.ER PO SCH ×2 (14:30→20:10)
--- NOTE | 2016-05-21 15:06 | PDOC2 ---
CONSULT Date of Consult Date of Consult DATE: 05/21/16 TIME: 14:50 Reason for Consult Reason for Consult: Chest Pain Referring Physician Referring Physician: Dr Robles Identification/Chief Complaint Chief Complaint Chest Pain History of Present Illness Reason for Visit: This pt is a pleasant 50 y o Lady that has no previous Hx of heart disease but is a diabetic with HTN for years. She has been under a lot of stress and her father and was buried yesterday. The pt has been having episodes of lightheadedness for some time but no LOC. For about 2 days she has been having some chest pains and at times it feels like a pounding in the chest and the left side of the chest is tender. The pt was admitted after coming to the ER for the chest pains. She has been bradycardic down to a rate of 43 since admission. Enzymes are negative, EKG no acute ST abnormality. She is having chest pains now with chest wall tenderness. Past Medical History Cardiovascular: HTN Endocrine: Diabetes Past Surgical History Past Surgical History: Cholecystectomy Current Problem List Problem List Problems Medical Problems: (1) Chest pain Status: Acute (2) Dizziness Status: Acute (3) Extremity numbness Status: Acute Current Medications Current Medications Current Medications Iohexol (Omnipaque 350 Mg/ml) 90 ml 1X ONCE IV ; Start 05/20/16 at 23:30; Stop 05/20/16 at 23:31; Status DC Info (Do NOT chart on this entry -- for MONITORING) 1 each PRN DAILY PRN MC SEE COMMENTS; Start 05/20/16 at 23:15; Stop 05/22/16 at 23:14 Aspirin (Children'S Aspirin) 324 mg 1X ONCE PO Last administered on 05/21/16t 00:43; Start 05/21/16 at 01:00; Stop 05/21/16 at 01:01; Status DC Nitroglycerin (Nitrostat) 0.4 mg PRN Q5MIN PRN SL CHEST PAIN; Start 05/21/16 at 00:30; Stop 05/21/16 at 01:02; Status DC Fentanyl Citrate (Fentanyl 2ml Vial) 25 mcg PRN Q15MIN PRN IV PAIN GREATER THAN 3/10; Start 05/21/16 at 00:30; Stop 05/22/16 at 00:29 Ondansetron HCl (Zofran) 4 mg PRN Q8HRS PRN IV NAUSEA/VOMITING; Start 05/21/16 at 01:00; Stop 05/21/16 at 14:37; Status DC Acetaminophen (Tylenol) 650 mg PRN Q4HRS PRN PO FEVER; Start 05/21/16 at 01:00 ; Stop 05/21/16 at 14:37; Status DC Nitroglycerin (Nitrostat) 0.4 mg PRN Q5MIN PRN SL CHEST PAIN; Start 05/21/16 at 01:00 Insulin Aspart (Novolog) 0-5 UNITS TIDWMEALS SQ ; Start 05/21/16 at 08:00; Stop 05/21/16 at 10:22; Status DC Dextrose 12.5 gm PRN Q15MIN PRN IV SEE COMMENTS; Start 05/21/16 at 01:00; Stop 05/21/16 at 10:22; Status DC Info (Do NOT chart on this placeholder) 1X ONCE MC ; Start 05/21/16 at 02:00; Stop 05/21/16 at 02:01; Status UNV Pneumococcal Polyvalent Vaccine (Do NOT chart on this placeholder) 1X ONCE MC ; Start 05/21/16 at 02:00; Stop 05/21/16 at 02:01; Status UNV Influenza Virus Vaccine Quadrival (Fluarix Quad [id number] Syringe) 0.5 ml ONCE ONCE VAX IM ; Start 05/21/16 at 09:00; Stop 05/21/16 at 09:01; Status DC Pneumococcal Polyvalent Vaccine (Pneumovax 23) 0.5 ml ONCE ONCE VAX IM ; Start 05/21/16 at 09:00; Stop 05/21/16 at 09:01; Status DC Atorvastatin Calcium (Lipitor) 10 mg HS PO ; Start 05/21/16 at 21:00 Glimepiride (Amaryl) 4 mg BID PO ; Start 05/21/16 at 21:00 Losartan Potassium (Cozaar) 100 mg DAILY PO Last administered on 05/21/16 12: 45; Start 05/21/16 at 11:00 Linagliptin (Tradjenta) 5 mg DAILY PO Last administered on 05/21/16 12:44; Start 05/21/16 at 11:00 Aspirin (Children'S Aspirin) 81 mg DAILYWBKFT PO Last administered on 12:45; Start 05/21/16 at 11:00 Insulin Detemir (Levemir) 25 units BID SQ Last administered on 05/21/16 12:51 ; Start 05/21/16 at 11:00 Insulin Aspart (Novolog) 0-9 UNITS QIDACHS SQ Last administered on 05/21/16 12 :50; Start 05/21/16 at 11:30 Dextrose 12.5 gm PRN Q15MIN PRN IV SEE COMMENTS; Start 05/21/16 at 10:30 Insulin Aspart (Novolog) 5 units TIDAC SQ Last administered on 05/21/16 12:49 ; Start 05/21/16 at 11:30 Acetaminophen (Tylenol) 650 mg PRN Q6HRS PRN PO MILD PAIN / TEMP; Start at 10:30 Ondansetron HCl (Zofran) 4 mg PRN Q6HRS PRN IV NAUSEA/VOMITING; Start 05/21/16 at 10:30 Hydralazine HCl (Apresoline) 10 mg PRN Q4HRS PRN IVP ELEVATED BP, SEE COMMENTS ; Start 05/21/16 at 13:45 Albuterol Sulfate (Ventolin Neb Soln) 2.5 mg PRN Q4HRS PRN NEB SHORTNESS OF BREATH; Start 05/21/16 at 13:45 Guaifenesin (Mucinex) 600 mg BID PO ; Start 05/21/16 at 14:30 Enoxaparin Sodium (Lovenox 40mg Syringe) 40 mg Q24H SQ ; Start 05/21/16 at 15:00 Active Scripts Active Reported Levemir Flextouch (Insulin Detemir) 100 Unit/1 Ml Insuln.pen 20 Unit SQ HS Levemir Flextouch (Insulin Detemir) 100 Unit/1 Ml Insuln.pen 25 Unit SQ DAILY Januvia (Sitagliptin Phosphate) 100 Mg Tablet 1 Tab PO DAILY Azithromycin Tablet (Azithromycin) 250 Mg Tablet 1 Pkg PO 1X LAST DOSE TODAY Atorvastatin Calcium 10 Mg Tablet 1 Tab PO DAILY Benicar (Olmesartan Medoxomil) 40 Mg Tablet 40 Mg PO DAILY Levemir (Insulin Detemir) 100 Unit/1 Ml Vial 12 Unit SQ DAILY Glimepiride 2 Mg Tablet 4 Mg PO BID Allergies Allergies: Coded Allergies: No Known Drug Allergies (Unverified , 11/04/15) Physical Exam General: Alert, Oriented X3, Cooperative HEENT: Atraumatic, PERRLA Lungs: Clear to auscultation Heart: Regular rate, Normal S1, Normal S2, Other ((++) chest wall tenderness on the left) Abdomen: Normal bowel sounds, Soft Extremities: No edema Psych/Mental Status: Mental status NL Vitals VITALS Vital Signs Date Time Temp Pulse Resp B/P Pulse Ox O2 Delivery O2 Flow Rate FiO2 05/21/16 12:45 64 134/63 05/21/16 10:47 97.2 18 100 Room Air 97.2 05/20/16 23:45 1 Labs Labs Laboratory Tests Test 05/20/16 21:20 05/20/16 21:55 05/21/16 02:45 05/21/16 08:00 White Blood Count 12.2x10^3/uL (4.0-11.0) Red Blood Count 4.44x10^6/uL (3.50-5.40) Hemoglobin 13.6g/dL (12.0-15.5) Hematocrit 40.6% (36.0-47.0) Mean Corpuscular Volume 92fL (79-100) Mean Corpuscular Hemoglobin 31pg (25-35) Mean Corpuscular Hemoglobin Concent 33g/dL (31-37) Red Cell Distribution Width 12.3% (11.5-14.5) Platelet Count 221x10^3/uL (140-400) Neutrophils (%) (Auto) 66% (31-73) Lymphocytes (%) (Auto) 27% (24-48) Monocytes (%) (Auto) 6% (0-9) Eosinophils (%) (Auto) 1% (0-3) Basophils (%) (Auto) 1% (0-3) Neutrophils # (Auto) 8.0x10^3uL (1.8-7.7) Lymphocytes # (Auto) 3.2x10^3/uL (1.0-4.8) Monocytes # (Auto) 0.7x10^3/uL (0.0-1.1) Eosinophils # (Auto) 0.1x10^3/uL (0.0-0.7) Basophils # (Auto) 0.1x10^3/uL (0.0-0.2) Prothrombin Time 14.3SEC (11.7-14.0) Prothromb Time International Ratio 1.2 (0.8-1.1) Activated Partial Thromboplast Time 32SEC (24-38) Sodium Level 140mmol/L (136-145) Potassium Level 4.1mmol/L (3.5-5.1) Chloride Level 102mmol/L (98-107) Carbon Dioxide Level 30mmol/L (21-32) Anion Gap 8 (6-14) Blood Urea Nitrogen 16mg/dL (7-20) Creatinine 0.8mg/dL (0.6-1.0) Estimated GFR (Cockcroft-Gault) 75.6 BUN/Creatinine Ratio 20 (6-20) Glucose Level 410mg/dL (70-99) Calcium Level 8.9mg/dL (8.5-10.1) Total Bilirubin 0.3mg/dL (0.2-1.0) Aspartate Amino Transf (AST/SGOT) 62U/L (15-37) Alanine Aminotransferase (ALT/SGPT) 133U/L (14-59) Alkaline Phosphatase 119U/L (46-116) Troponin I Quantitative < 0.017ng/mL (0.000-0.055) < 0.017ng/mL (0.000-0.055) < 0.017ng/mL (0.000-0.055) JY-Tdn-J-Type Natriuretic Peptide 41pg/mL (0-124) Total Protein 7.3g/dL (6.4-8.2) Albumin 3.3g/dL (3.4-5.0) Albumin/Globulin Ratio 0.8 (1.0-1.7) Lipase 276U/L (73-393) Urine Collection Type Unknown Urine Color Yellow Urine Clarity Clear Urine pH 6.5 Urine Specific [place] >=1.030 Urine Protein Negativemg/dL (NEG-TRACE) Urine Glucose (UA) >=1000mg/dL (NEG) Urine Ketones (Stick) Negativemg/dL (NEG) Urine Blood Negative (NEG) Urine Nitrite Negative (NEG) Urine Bilirubin Negative (NEG) Urine Urobilinogen Dipstick 1.0mg/dL (0.2 mg/dL) Urine Leukocyte Esterase Small (NEG) Urine RBC 0/HPF (0-2) Urine WBC 5-10/HPF (0-4) Urine Squamous Epithelial Cells Few/LPF Urine Bacteria 0/HPF (0-FEW) Urine Opiates Screen Neg (NEG) Urine Methadone Screen Neg (NEG) Urine Barbiturates Neg (NEG) Urine Phencyclidine Screen Neg (NEG) Urine Amphetamine/Methamphetamine Neg (NEG) Urine Benzodiazepines Screen Neg (NEG) Urine Cocaine Screen Neg (NEG) Urine Cannabinoids Screen Neg (NEG) Urine Ethyl Alcohol Neg (NEG) Test 05/21/16 08:01 05/21/16 10:46 Glucose (Fingerstick) 230mg/dL (70-99) 290mg/dL (70-99) Laboratory Tests Test 05/20/16 21:20 05/20/16 21:55 05/21/16 02:45 05/21/16 08:00 White Blood Count 12.2x10^3/uL (4.0-11.0) Red Blood Count 4.44x10^6/uL (3.50-5.40) Hemoglobin 13.6g/dL (12.0-15.5) Hematocrit 40.6% (36.0-47.0) Mean Corpuscular Volume 92fL (79-100) Mean Corpuscular Hemoglobin 31pg (25-35) Mean Corpuscular Hemoglobin Concent 33g/dL (31-37) Red Cell Distribution Width 12.3% (11.5-14.5) Platelet Count 221x10^3/uL (140-400) Neutrophils (%) (Auto) 66% (31-73) Lymphocytes (%) (Auto) 27% (24-48) Monocytes (%) (Auto) 6% (0-9) Eosinophils (%) (Auto) 1% (0-3) Basophils (%) (Auto) 1% (0-3) Neutrophils # (Auto) 8.0x10^3uL (1.8-7.7) Lymphocytes # (Auto) 3.2x10^3/uL (1.0-4.8) Monocytes # (Auto) 0.7x10^3/uL (0.0-1.1) Eosinophils # (Auto) 0.1x10^3/uL (0.0-0.7) Basophils # (Auto) 0.1x10^3/uL (0.0-0.2) Prothrombin Time 14.3SEC (11.7-14.0) Prothromb Time International Ratio 1.2 (0.8-1.1) Activated Partial Thromboplast Time 32SEC (24-38) Sodium Level 140mmol/L (136-145) Potassium Level 4.1mmol/L (3.5-5.1) Chloride Level 102mmol/L (98-107) Carbon Dioxide Level 30mmol/L (21-32) Anion Gap 8 (6-14) Blood Urea Nitrogen 16mg/dL (7-20) Creatinine 0.8mg/dL (0.6-1.0) Estimated GFR (Cockcroft-Gault) 75.6 BUN/Creatinine Ratio 20 (6-20) Glucose Level 410mg/dL (70-99) Calcium Level 8.9mg/dL (8.5-10.1) Total Bilirubin 0.3mg/dL (0.2-1.0) Aspartate Amino Transf (AST/SGOT) 62U/L (15-37) Alanine Aminotransferase (ALT/SGPT) 133U/L (14-59) Alkaline Phosphatase 119U/L (46-116) Troponin I Quantitative < 0.017ng/mL (0.000-0.055) < 0.017ng/mL (0.000-0.055) < 0.017ng/mL (0.000-0.055) EA-Sli-Q-Type Natriuretic Peptide 41pg/mL (0-124) Total Protein 7.3g/dL (6.4-8.2) Albumin 3.3g/dL (3.4-5.0) Albumin/Globulin Ratio 0.8 (1.0-1.7) Lipase 276U/L (73-393) Urine Collection Type Unknown Urine Color Yellow Urine Clarity Clear Urine pH 6.5 Urine Specific [place] >=1.030 Urine Protein Negativemg/dL (NEG-TRACE) Urine Glucose (UA) >=1000mg/dL (NEG) Urine Ketones (Stick) Negativemg/dL (NEG) Urine Blood Negative (NEG) Urine Nitrite Negative (NEG) Urine Bilirubin Negative (NEG) Urine Urobilinogen Dipstick 1.0mg/dL (0.2 mg/dL) Urine Leukocyte Esterase Small (NEG) Urine RBC 0/HPF (0-2) Urine WBC 5-10/HPF (0-4) Urine Squamous Epithelial Cells Few/LPF Urine Bacteria 0/HPF (0-FEW) Urine Opiates Screen Neg (NEG) Urine Methadone Screen Neg (NEG) Urine Barbiturates Neg (NEG) Urine Phencyclidine Screen Neg (NEG) Urine Amphetamine/Methamphetamine Neg (NEG) Urine Benzodiazepines Screen Neg (NEG) Urine Cocaine Screen Neg (NEG) Urine Cannabinoids Screen Neg (NEG) Urine Ethyl Alcohol Neg (NEG) Test 05/21/16 08:01 05/21/16 10:46 Glucose (Fingerstick) 230mg/dL (70-99) 290mg/dL (70-99) Assessment/Plan Assessment/Plan Pt with chest pains that are most likely chest wall pain but she is bradycardic and some of her discomforts may be palpitations. This may be a Tachy/Jorge Synd. Will monitor her and get an echocardiogram. Thank you. NIESHA BEARDEN MD May 21, 2016 15:06
[2016-05-21] MEDS: ENOXAPARIN 40 MG/0.4 ML DISP.SYRIN. SQ SCH (17:24)
[2016-05-21] MEDS: ATORVASTATIN CALCIUM 10 MG TABLET. PO SCH (20:10)
[2016-05-21] MEDS: GLIMEPIRIDE 2 MG TABLET PO SCH (20:10)
[2016-05-22 03:15] VITALS: BP 115/52
[2016-05-22 04:15] LABS: BASO # 0.1 x10^3/uL (0.0-0.2); BASO % 1 % (0-3); EOS % 2 % (0-3); HEMATOCRIT 41.1 % (36.0-47.0); HEMOGLOBIN 13.9 g/dL (12.0-15.5); LYMPH # 2.5 x10^3/uL (1.0-4.8); LYMPH % 29 % (24-48); MEAN CORPUSCULAR HEMOGLOBIN 31 pg (25-35); MEAN CORPUSCULAR HGB CONC 34 g/dL (31-37); MEAN CORPUSCULAR VOLUME 92 fL (79-100); MONO % 7 % (0-9); NEUT % 62 % (31-73); PLATELET COUNT 207 x10^3/uL (140-400); RED BLOOD COUNT 4.47 x10^6/uL (3.50-5.40); RED CELL DISTRIBUTION WIDTH 12.6 % (11.5-14.5); WHITE BLOOD COUNT 8.6 x10^3/uL (4.0-11.0)
[2016-05-22 04:28] LABS: CREATININE 0.6 mg/dL (0.6-1.0); GFR 105.4; POTASSIUM 4.1 mmol/L (3.5-5.1)
[2016-05-22 04:42] LABS: FREE T4 1.25 ng/dL (0.76-1.46)
[2016-05-22 06:14] LABS: CHOLESTEROL/HDL RATIO 3.7
[2016-05-22 07:18] VITALS: BP 171/68
[2016-05-22] MEDS: LINAGLIPTIN 5 MG TABLET PO SCH (08:36)
[2016-05-22] MEDS: GLIMEPIRIDE 2 MG TABLET PO SCH ×2 (08:36→20:45)
[2016-05-22] MEDS: GUAIFENESIN ER 600 MG TABLET.ER PO SCH ×2 (08:37→20:45)
[2016-05-22] MEDS: ASPIRIN 81 MG TAB.CHEW PO SCH (08:37)
[2016-05-22] MEDS: LOSARTAN POTASSIUM 50 MG TABLET. PO SCH (08:37)
[2016-05-22] MEDS: INSULIN ASPART 300 UNITS/3 ML INSULN.PEN SQ SCH ×7 (08:40→20:51)
[2016-05-22] MEDS: INSULIN DETEMIR 300 UNITS/3 ML INSULN.PEN. SQ SCH ×2 (08:40→20:51)
[2016-05-22 11:32] VITALS: BP 142/83
--- NOTE | 2016-05-22 13:52 | CARD ---
APPROVED REPORT EXAM: Two-dimensional and M-mode echocardiogram with Doppler and color Doppler. Other Information Quality : Good INDICATION Chest Pain Bradycardia 2D DIMENSIONS RVDd2.8 (2.9-3.5cm)Left Atrium(2D)3.6 (1.6-4.0cm) IVSd1.4 (0.7-1.1cm)Aortic Root(2D)2.6 (2.0-3.7cm) LVDd4.6 (3.9-5.9cm)LVOT Diameter2.0 (1.8-2.4cm) PWd1.0 (0.7-1.1cm)LVDs2.9 (2.5-4.0cm) FS (%) 30.0 %SV65.2 ml LVEF(%)60.0 (>50%) Aortic Valve AoV Peak Eusebio.141.6cm/Monica Peak GR.8.0mmHg Mitral Valve MV E Khtswvuf83.3cm/sMV DECEL [id number] MV A Cxiwdypd15.7cm/sE/A Ratio1.1 TDI Lateral E' P. V7.21cm/sMedial E' P. V5.86cm/s E/Lateral E'13.4E/Medial E'16.4 Pulmonary Vein S1 Tvifgllq37.6cm/sS2 Tibnjdgd75.15cm/s D2 Anznhfap69.1cm/sPVa [id number] LEFT VENTRICLE The left ventricle is normal size. There is mild concentric left ventricular hypertrophy. The left ve ntricular systolic function is normal and the ejection fraction is within normal range. The Ejection Fraction is 60%. There is normal LV segmental wall motion. Transmitral Doppler flow pattern is Grade I-abnormal relaxation pattern. RIGHT VENTRICLE The right ventricle is normal size. The right ventricular systolic function is normal. ATRIA The left atrium size is normal. The right atrium size is normal. The interatrial septum is intact wit h no evidence for an atrial septal defect or patent foramen ovale as noted on 2-D or Doppler imaging. AORTIC VALVE The aortic valve is calcified but opens well. Doppler and Color Flow revealed no significant aortic r egurgitation. There is no significant aortic valvular stenosis. MITRAL VALVE The mitral valve is normal in structure There is no evidence of mitral valve prolapse. There is no mi tral valve stenosis. Doppler and Color-flow revealed trace mitral regurgitation. TRICUSPID VALVE The tricuspid valve is normal in structure Doppler and Color Flow revealed trace tricuspid regurgitat ion. There is no tricuspid valve stenosis. PULMONIC VALVE The pulmonary valve is normal in structure and function. Doppler and Color Flow revealed no pulmonic valvular regurgitation. There is no pulmonic valvular stenosis. GREAT VESSELS The aortic root is normal in size. The ascending aorta is normal in size. The IVC is normal in size a nd collapses >50% with inspiration. PERICARDIAL EFFUSION There is a very small pericardial effusion. Critical Notification Critical Value: No <Conclusion> The left ventricular systolic function is normal and the ejection fraction is within normal range. The Ejection Fraction is 60%. Transmitral Doppler flow pattern is Grade I-abnormal relaxation pattern. The left atrium size is normal. The right atrium size is normal. The aortic valve is calcified but opens well. Doppler and Color-flow revealed trace mitral regurgitation. Doppler and Color Flow revealed trace tricuspid regurgitation. The pulmonary valve is normal in structure and function. There is a very small pericardial effusion.
--- NOTE | 2016-05-22 15:06 | PDOC ---
PROGRESS NOTES Chief Complaint Chief Complaint 1. chest pain, likely 2/2 muscular pain 2. uncontrolled DM2 3. HTN 4. hld 5. sinus lawanda cardia, could be tachy at home 6. GERD 7. MORBID obesity 8. EARL 9. MILD malnutrition 10. SIRS wo infection 11. left thyroid nodule 7mm on CT, can fu as outpt plan: 1. fu with card, echo tmr 2. check lipid panel, cont lipitor 10mg for now check tsh, t4 normal CE neg, echo basically normal 3. cont home meds, increase insulin to levemir 30u bid, add aspart 5u tid, SSI check hba1c cough meds dvt ppx hold dc today for bradycardia History of Present Illness History of Present Illness lawanda after midnight 30-40s still hyperglycemia, no chest pain Vitals Vitals Vital Signs Date Time Temp Pulse Resp B/P Pulse Ox O2 Delivery O2 Flow Rate FiO2 05/22/16 11:32 98.2 58 18 142/83 97 Room Air 98.2 Physical Exam General: Alert, Oriented X3, Cooperative Heart: Regular rate, Normal S1, Normal S2, Other ((++) chest wall tenderness on the left) Abdomen: Normal bowel sounds, Soft Extremities: No edema Labs LABS Laboratory Tests Test 05/21/16 16:41 05/21/16 20:09 05/22/16 03:30 05/22/16 05:00 Glucose (Fingerstick) 274mg/dL (70-99) 295mg/dL (70-99) White Blood Count 8.6x10^3/uL (4.0-11.0) Red Blood Count 4.47x10^6/uL (3.50-5.40) Hemoglobin 13.9g/dL (12.0-15.5) Hematocrit 41.1% (36.0-47.0) Mean Corpuscular Volume 92fL (79-100) Mean Corpuscular Hemoglobin 31pg (25-35) Mean Corpuscular Hemoglobin Concent 34g/dL (31-37) Red Cell Distribution Width 12.6% (11.5-14.5) Platelet Count 207x10^3/uL (140-400) Neutrophils (%) (Auto) 62% (31-73) Lymphocytes (%) (Auto) 29% (24-48) Monocytes (%) (Auto) 7% (0-9) Eosinophils (%) (Auto) 2% (0-3) Basophils (%) (Auto) 1% (0-3) Neutrophils # (Auto) 5.3x10^3uL (1.8-7.7) Lymphocytes # (Auto) 2.5x10^3/uL (1.0-4.8) Monocytes # (Auto) 0.6x10^3/uL (0.0-1.1) Eosinophils # (Auto) 0.1x10^3/uL (0.0-0.7) Basophils # (Auto) 0.1x10^3/uL (0.0-0.2) Sodium Level 140mmol/L (136-145) Potassium Level 4.1mmol/L (3.5-5.1) Chloride Level 104mmol/L (98-107) Carbon Dioxide Level 28mmol/L (21-32) Anion Gap 8 (6-14) Blood Urea Nitrogen 18mg/dL (7-20) Creatinine 0.6mg/dL (0.6-1.0) Estimated GFR (Cockcroft-Gault) 105.4 Glucose Level 238mg/dL (70-99) Calcium Level 9.0mg/dL (8.5-10.1) Thyroid Stimulating Hormone (TSH) 0.589uIU/mL (0.358-3.74) Free Thyroxine 1.25ng/dL (0.76-1.46) Triglycerides Level 176mg/dL (0-150) Cholesterol Level 133mg/dL (0-200) LDL Cholesterol, Calculated 62mg/dL (0-100) VLDL Cholesterol, Calculated 35mg/dL (0-40) HDL Cholesterol 36mg/dL (40-60) Cholesterol/HDL Ratio 3.7 Test 05/22/16 07:21 05/22/16 11:42 Glucose (Fingerstick) 214mg/dL (70-99) 244mg/dL (70-99) Review of Systems Review of Systems no fever, chills, sob or chest pain Assessment and Plan Assessmemt and Plan Problems Medical Problems: (1) Chest pain Status: Acute (2) Dizziness Status: Acute (3) Extremity numbness Status: Acute Problems: Comment Review of Relevant I have reviewed the following items lisa (where applicable) has been applied. Labs Laboratory Tests Test 05/20/16 21:20 05/20/16 21:55 05/21/16 02:45 05/21/16 08:00 White Blood Count 12.2x10^3/uL (4.0-11.0) Red Blood Count 4.44x10^6/uL (3.50-5.40) Hemoglobin 13.6g/dL (12.0-15.5) Hematocrit 40.6% (36.0-47.0) Mean Corpuscular Volume 92fL (79-100) Mean Corpuscular Hemoglobin 31pg (25-35) Mean Corpuscular Hemoglobin Concent 33g/dL (31-37) Red Cell Distribution Width 12.3% (11.5-14.5) Platelet Count 221x10^3/uL (140-400) Neutrophils (%) (Auto) 66% (31-73) Lymphocytes (%) (Auto) 27% (24-48) Monocytes (%) (Auto) 6% (0-9) Eosinophils (%) (Auto) 1% (0-3) Basophils (%) (Auto) 1% (0-3) Neutrophils # (Auto) 8.0x10^3uL (1.8-7.7) Lymphocytes # (Auto) 3.2x10^3/uL (1.0-4.8) Monocytes # (Auto) 0.7x10^3/uL (0.0-1.1) Eosinophils # (Auto) 0.1x10^3/uL (0.0-0.7) Basophils # (Auto) 0.1x10^3/uL (0.0-0.2) Prothrombin Time 14.3SEC (11.7-14.0) Prothromb Time International Ratio 1.2 (0.8-1.1) Activated Partial Thromboplast Time 32SEC (24-38) Sodium Level 140mmol/L (136-145) Potassium Level 4.1mmol/L (3.5-5.1) Chloride Level 102mmol/L (98-107) Carbon Dioxide Level 30mmol/L (21-32) Anion Gap 8 (6-14) Blood Urea Nitrogen 16mg/dL (7-20) Creatinine 0.8mg/dL (0.6-1.0) Estimated GFR (Cockcroft-Gault) 75.6 BUN/Creatinine Ratio 20 (6-20) Glucose Level 410mg/dL (70-99) Calcium Level 8.9mg/dL (8.5-10.1) Total Bilirubin 0.3mg/dL (0.2-1.0) Aspartate Amino Transf (AST/SGOT) 62U/L (15-37) Alanine Aminotransferase (ALT/SGPT) 133U/L (14-59) Alkaline Phosphatase 119U/L (46-116) Troponin I Quantitative < 0.017ng/mL (0.000-0.055) < 0.017ng/mL (0.000-0.055) < 0.017ng/mL (0.000-0.055) RJ-Sqp-A-Type Natriuretic Peptide 41pg/mL (0-124) Total Protein 7.3g/dL (6.4-8.2) Albumin 3.3g/dL (3.4-5.0) Albumin/Globulin Ratio 0.8 (1.0-1.7) Lipase 276U/L (73-393) Urine Collection Type Unknown Urine Color Yellow Urine Clarity Clear Urine pH 6.5 Urine Specific [place] >=1.030 Urine Protein Negativemg/dL (NEG-TRACE) Urine Glucose (UA) >=1000mg/dL (NEG) Urine Ketones (Stick) Negativemg/dL (NEG) Urine Blood Negative (NEG) Urine Nitrite Negative (NEG) Urine Bilirubin Negative (NEG) Urine Urobilinogen Dipstick 1.0mg/dL (0.2 mg/dL) Urine Leukocyte Esterase Small (NEG) Urine RBC 0/HPF (0-2) Urine WBC 5-10/HPF (0-4) Urine Squamous Epithelial Cells Few/LPF Urine Bacteria 0/HPF (0-FEW) Urine Opiates Screen Neg (NEG) Urine Methadone Screen Neg (NEG) Urine Barbiturates Neg (NEG) Urine Phencyclidine Screen Neg (NEG) Urine Amphetamine/Methamphetamine Neg (NEG) Urine Benzodiazepines Screen Neg (NEG) Urine Cocaine Screen Neg (NEG) Urine Cannabinoids Screen Neg (NEG) Urine Ethyl Alcohol Neg (NEG) Test 05/21/16 08:01 05/21/16 10:46 05/21/16 16:41 05/21/16 20:09 Glucose (Fingerstick) 230mg/dL (70-99) 290mg/dL (70-99) 274mg/dL (70-99) 295mg/dL (70-99) Test 05/22/16 03:30 05/22/16 05:00 05/22/16 07:21 05/22/16 11:42 White Blood Count 8.6x10^3/uL (4.0-11.0) Red Blood Count 4.47x10^6/uL (3.50-5.40) Hemoglobin 13.9g/dL (12.0-15.5) Hematocrit 41.1% (36.0-47.0) Mean Corpuscular Volume 92fL (79-100) Mean Corpuscular Hemoglobin 31pg (25-35) Mean Corpuscular Hemoglobin Concent 34g/dL (31-37) Red Cell Distribution Width 12.6% (11.5-14.5) Platelet Count 207x10^3/uL (140-400) Neutrophils (%) (Auto) 62% (31-73) Lymphocytes (%) (Auto) 29% (24-48) Monocytes (%) (Auto) 7% (0-9) Eosinophils (%) (Auto) 2% (0-3) Basophils (%) (Auto) 1% (0-3) Neutrophils # (Auto) 5.3x10^3uL (1.8-7.7) Lymphocytes # (Auto) 2.5x10^3/uL (1.0-4.8) Monocytes # (Auto) 0.6x10^3/uL (0.0-1.1) Eosinophils # (Auto) 0.1x10^3/uL (0.0-0.7) Basophils # (Auto) 0.1x10^3/uL (0.0-0.2) Sodium Level 140mmol/L (136-145) Potassium Level 4.1mmol/L (3.5-5.1) Chloride Level 104mmol/L (98-107) Carbon Dioxide Level 28mmol/L (21-32) Anion Gap 8 (6-14) Blood Urea Nitrogen 18mg/dL (7-20) Creatinine 0.6mg/dL (0.6-1.0) Estimated GFR (Cockcroft-Gault) 105.4 Glucose Level 238mg/dL (70-99) Calcium Level 9.0mg/dL (8.5-10.1) Thyroid Stimulating Hormone (TSH) 0.589uIU/mL (0.358-3.74) Free Thyroxine 1.25ng/dL (0.76-1.46) Triglycerides Level 176mg/dL (0-150) Cholesterol Level 133mg/dL (0-200) LDL Cholesterol, Calculated 62mg/dL (0-100) VLDL Cholesterol, Calculated 35mg/dL (0-40) HDL Cholesterol 36mg/dL (40-60) Cholesterol/HDL Ratio 3.7 Glucose (Fingerstick) 214mg/dL (70-99) 244mg/dL (70-99) Laboratory Tests Test 05/21/16 16:41 05/21/16 20:09 05/22/16 03:30 05/22/16 05:00 Glucose (Fingerstick) 274mg/dL (70-99) 295mg/dL (70-99) White Blood Count 8.6x10^3/uL (4.0-11.0) Red Blood Count 4.47x10^6/uL (3.50-5.40) Hemoglobin 13.9g/dL (12.0-15.5) Hematocrit 41.1% (36.0-47.0) Mean Corpuscular Volume 92fL (79-100) Mean Corpuscular Hemoglobin 31pg (25-35) Mean Corpuscular Hemoglobin Concent 34g/dL (31-37) Red Cell Distribution Width 12.6% (11.5-14.5) Platelet Count 207x10^3/uL (140-400) Neutrophils (%) (Auto) 62% (31-73) Lymphocytes (%) (Auto) 29% (24-48) Monocytes (%) (Auto) 7% (0-9) Eosinophils (%) (Auto) 2% (0-3) Basophils (%) (Auto) 1% (0-3) Neutrophils # (Auto) 5.3x10^3uL (1.8-7.7) Lymphocytes # (Auto) 2.5x10^3/uL (1.0-4.8) Monocytes # (Auto) 0.6x10^3/uL (0.0-1.1) Eosinophils # (Auto) 0.1x10^3/uL (0.0-0.7) Basophils # (Auto) 0.1x10^3/uL (0.0-0.2) Sodium Level 140mmol/L (136-145) Potassium Level 4.1mmol/L (3.5-5.1) Chloride Level 104mmol/L (98-107) Carbon Dioxide Level 28mmol/L (21-32) Anion Gap 8 (6-14) Blood Urea Nitrogen 18mg/dL (7-20) Creatinine 0.6mg/dL (0.6-1.0) Estimated GFR (Cockcroft-Gault) 105.4 Glucose Level 238mg/dL (70-99) Calcium Level 9.0mg/dL (8.5-10.1) Thyroid Stimulating Hormone (TSH) 0.589uIU/mL (0.358-3.74) Free Thyroxine 1.25ng/dL (0.76-1.46) Triglycerides Level 176mg/dL (0-150) Cholesterol Level 133mg/dL (0-200) LDL Cholesterol, Calculated 62mg/dL (0-100) VLDL Cholesterol, Calculated 35mg/dL (0-40) HDL Cholesterol 36mg/dL (40-60) Cholesterol/HDL Ratio 3.7 Test 05/22/16 07:21 05/22/16 11:42 Glucose (Fingerstick) 214mg/dL (70-99) 244mg/dL (70-99) Microbiology 05/20/16 Urine Culture - Preliminary, Resulted 05/20/16 Urine Culture Result 1 (ERWIN) - Preliminary, Resulted Medications Current Medications Iohexol (Omnipaque 350 Mg/ml) 90 ml 1X ONCE IV ; Start 05/20/16 at 23:30; Stop 05/20/16 at 23:31; Status DC Info (Do NOT chart on this entry -- for MONITORING) 1 each PRN DAILY PRN MC SEE COMMENTS; Start 05/20/16 at 23:15; Stop 05/22/16 at 23:14 Aspirin (Children'S Aspirin) 324 mg 1X ONCE PO Last administered on 05/21/16t 00:43; Start 05/21/16 at 01:00; Stop 05/21/16 at 01:01; Status DC Nitroglycerin (Nitrostat) 0.4 mg PRN Q5MIN PRN SL CHEST PAIN; Start 05/21/16 at 00:30; Stop 05/21/16 at 01:02; Status DC Fentanyl Citrate (Fentanyl 2ml Vial) 25 mcg PRN Q15MIN PRN IV PAIN GREATER THAN 3/10; Start 05/21/16 at 00:30; Stop 05/22/16 at 00:29; Status DC Ondansetron HCl (Zofran) 4 mg PRN Q8HRS PRN IV NAUSEA/VOMITING; Start 05/21/16 at 01:00; Stop 05/21/16 at 14:37; Status DC Acetaminophen (Tylenol) 650 mg PRN Q4HRS PRN PO FEVER; Start 05/21/16 at 01:00 ; Stop 05/21/16 at 14:37; Status DC Nitroglycerin (Nitrostat) 0.4 mg PRN Q5MIN PRN SL CHEST PAIN; Start 05/21/16 at 01:00 Insulin Aspart (Novolog) 0-5 UNITS TIDWMEALS SQ ; Start 05/21/16 at 08:00; Stop 05/21/16 at 10:22; Status DC Dextrose 12.5 gm PRN Q15MIN PRN IV SEE COMMENTS; Start 05/21/16 at 01:00; Stop 05/21/16 at 10:22; Status DC Info (Do NOT chart on this placeholder) 1X ONCE MC ; Start 05/21/16 at 02:00; Stop 05/21/16 at 02:01; Status UNV Pneumococcal Polyvalent Vaccine (Do NOT chart on this placeholder) 1X ONCE MC ; Start 05/21/16 at 02:00; Stop 05/21/16 at 02:01; Status UNV Influenza Virus Vaccine Quadrival (Fluarix Quad [id number] Syringe) 0.5 ml ONCE ONCE VAX IM ; Start 05/21/16 at 09:00; Stop 05/21/16 at 09:01; Status DC Pneumococcal Polyvalent Vaccine (Pneumovax 23) 0.5 ml ONCE ONCE VAX IM ; Start 05/21/16 at 09:00; Stop 05/21/16 at 09:01; Status DC Atorvastatin Calcium (Lipitor) 10 mg HS PO Last administered on 05/21/16t 20:10 ; Start 05/21/16 at 21:00 Glimepiride (Amaryl) 4 mg BID PO Last administered on 05/22/16 08:36; Start at 21:00 Losartan Potassium (Cozaar) 100 mg DAILY PO Last administered on 05/22/16 08: 37; Start 05/21/16 at 11:00 Linagliptin (Tradjenta) 5 mg DAILY PO Last administered on 05/22/16 08:36; Start 05/21/16 at 11:00 Aspirin (Children'S Aspirin) 81 mg [id number] PO Last administered on 08:37; Start 05/21/16 at 11:00 Insulin Detemir (Levemir) 25 units BID SQ Last administered on 05/22/16 08:40 ; Start 05/21/16 at 11:00; Stop 05/22/16 at 13:07; Status DC Insulin Aspart (Novolog) 0-9 UNITS QIDACHS SQ Last administered on 05/22/16 12 :48; Start 05/21/16 at 11:30 Dextrose 12.5 gm PRN Q15MIN PRN IV SEE COMMENTS; Start 05/21/16 at 10:30 Insulin Aspart (Novolog) 5 units TIDAC SQ Last administered on 05/22/16 12:49 ; Start 05/21/16 at 11:30 Acetaminophen (Tylenol) 650 mg PRN Q6HRS PRN PO MILD PAIN / TEMP; Start at 10:30 Ondansetron HCl (Zofran) 4 mg PRN Q6HRS PRN IV NAUSEA/VOMITING; Start 05/21/16 at 10:30 Hydralazine HCl (Apresoline) 10 mg PRN Q4HRS PRN IVP ELEVATED BP, SEE COMMENTS ; Start 05/21/16 at 13:45 Albuterol Sulfate (Ventolin Neb Soln) 2.5 mg PRN Q4HRS PRN NEB SHORTNESS OF BREATH; Start 05/21/16 at 13:45 Guaifenesin (Mucinex) 600 mg BID PO Last administered on 05/22/16 08:37; Start 05/21/16 at 14:30 Enoxaparin Sodium (Lovenox 40mg Syringe) 40 mg Q24H SQ Last administered on 17:24; Start 05/21/16 at 15:00 Insulin Detemir (Levemir) 30 units BID SQ ; Start 05/22/16 at 21:00 Active Scripts Active Reported Levemir Flextouch (Insulin Detemir) 100 Unit/1 Ml Insuln.pen 20 Unit SQ HS Levemir Flextouch (Insulin Detemir) 100 Unit/1 Ml Insuln.pen 25 Unit SQ DAILY Januvia (Sitagliptin Phosphate) 100 Mg Tablet 1 Tab PO DAILY Azithromycin Tablet (Azithromycin) 250 Mg Tablet 1 Pkg PO 1X LAST DOSE TODAY Atorvastatin Calcium 10 Mg Tablet 1 Tab PO DAILY Benicar (Olmesartan Medoxomil) 40 Mg Tablet 40 Mg PO DAILY Levemir (Insulin Detemir) 100 Unit/1 Ml Vial 12 Unit SQ DAILY Glimepiride 2 Mg Tablet 4 Mg PO BID Vitals/I & O Vital Sign - Last 24 Hours 05/21/16 05/21/16 05/21/16 05/22/16 18:50 19:41 22:43 03:15 Temp 97.9 97.9 98.0 97.9 97.9 98.0 Pulse 69 62 57 Resp B/P 126/78 102/51 115/52 Pulse Ox 94 98 96 O2 Delivery Room Air Room Air Room Air Room Air 05/22/16 05/22/16 05/22/16 05/22/16 07:10 07:18 08:37 11:32 Temp 98.4 98.2 98.4 98.2 Pulse 63 73 58 Resp 18 B/P 171/68 134/63 142/83 Pulse Ox 96 97 O2 Delivery Room Air Room Air Room Air Intake and Output 05/21/16 05/21/16 05/22/16 15:00 23:00 07:00 Intake Total 400 ml Balance 400 ml GOPAL CORONEL MD May 22, 2016 15:06
[2016-05-22 15:15] VITALS: BP 147/71
--- NOTE | 2016-05-22 15:32 | PDOC ---
PROGRESS NOTES Subjective Subjective The patient is feeling better today. During the night she had episodes of sinus bradycardia with a heart rate down to 39. The patient is ambulating today and heart rate in the 60s. Objective Objective Vital Signs Date Time Temp Pulse Resp B/P Pulse Ox O2 Delivery O2 Flow Rate FiO2 05/22/16 11:32 98.2 58 18 142/83 97 Room Air 98.2 05/20/16 23:45 1 Intake and Output 05/22/16 07:00 Intake Total 400 ml Balance 400 ml Intake Oral 400 ml # Voids 4 Physical Exam Physical Exam No significant changes in cardiac exam Assessment Assessment The patient's echocardiogram was essentially normal. She had some slow episodes during the night. Today she has been asymptomatic and ambulating. I would like to monitor her until the morning and then if she does not have a significant bradycardia during the night she may go home in a.m. to be continuing the workup as an outpatient. Problems Medical Problems: (1) Chest pain Status: Acute (2) Dizziness Status: Acute (3) Extremity numbness Status: Acute Comment Review of Relevant I have reviewed the following items lisa (where applicable) has been applied. Labs Laboratory Tests Test 05/20/16 21:20 05/20/16 21:55 05/21/16 02:45 05/21/16 08:00 White Blood Count 12.2x10^3/uL (4.0-11.0) Red Blood Count 4.44x10^6/uL (3.50-5.40) Hemoglobin 13.6g/dL (12.0-15.5) Hematocrit 40.6% (36.0-47.0) Mean Corpuscular Volume 92fL (79-100) Mean Corpuscular Hemoglobin 31pg (25-35) Mean Corpuscular Hemoglobin Concent 33g/dL (31-37) Red Cell Distribution Width 12.3% (11.5-14.5) Platelet Count 221x10^3/uL (140-400) Neutrophils (%) (Auto) 66% (31-73) Lymphocytes (%) (Auto) 27% (24-48) Monocytes (%) (Auto) 6% (0-9) Eosinophils (%) (Auto) 1% (0-3) Basophils (%) (Auto) 1% (0-3) Neutrophils # (Auto) 8.0x10^3uL (1.8-7.7) Lymphocytes # (Auto) 3.2x10^3/uL (1.0-4.8) Monocytes # (Auto) 0.7x10^3/uL (0.0-1.1) Eosinophils # (Auto) 0.1x10^3/uL (0.0-0.7) Basophils # (Auto) 0.1x10^3/uL (0.0-0.2) Prothrombin Time 14.3SEC (11.7-14.0) Prothromb Time International Ratio 1.2 (0.8-1.1) Activated Partial Thromboplast Time 32SEC (24-38) Sodium Level 140mmol/L (136-145) Potassium Level 4.1mmol/L (3.5-5.1) Chloride Level 102mmol/L (98-107) Carbon Dioxide Level 30mmol/L (21-32) Anion Gap 8 (6-14) Blood Urea Nitrogen 16mg/dL (7-20) Creatinine 0.8mg/dL (0.6-1.0) Estimated GFR (Cockcroft-Gault) 75.6 BUN/Creatinine Ratio 20 (6-20) Glucose Level 410mg/dL (70-99) Calcium Level 8.9mg/dL (8.5-10.1) Total Bilirubin 0.3mg/dL (0.2-1.0) Aspartate Amino Transf (AST/SGOT) 62U/L (15-37) Alanine Aminotransferase (ALT/SGPT) 133U/L (14-59) Alkaline Phosphatase 119U/L (46-116) Troponin I Quantitative < 0.017ng/mL (0.000-0.055) < 0.017ng/mL (0.000-0.055) < 0.017ng/mL (0.000-0.055) AW-Hgh-J-Type Natriuretic Peptide 41pg/mL (0-124) Total Protein 7.3g/dL (6.4-8.2) Albumin 3.3g/dL (3.4-5.0) Albumin/Globulin Ratio 0.8 (1.0-1.7) Lipase 276U/L (73-393) Urine Collection Type Unknown Urine Color Yellow Urine Clarity Clear Urine pH 6.5 Urine Specific [place] >=1.030 Urine Protein Negativemg/dL (NEG-TRACE) Urine Glucose (UA) >=1000mg/dL (NEG) Urine Ketones (Stick) Negativemg/dL (NEG) Urine Blood Negative (NEG) Urine Nitrite Negative (NEG) Urine Bilirubin Negative (NEG) Urine Urobilinogen Dipstick 1.0mg/dL (0.2 mg/dL) Urine Leukocyte Esterase Small (NEG) Urine RBC 0/HPF (0-2) Urine WBC 5-10/HPF (0-4) Urine Squamous Epithelial Cells Few/LPF Urine Bacteria 0/HPF (0-FEW) Urine Opiates Screen Neg (NEG) Urine Methadone Screen Neg (NEG) Urine Barbiturates Neg (NEG) Urine Phencyclidine Screen Neg (NEG) Urine Amphetamine/Methamphetamine Neg (NEG) Urine Benzodiazepines Screen Neg (NEG) Urine Cocaine Screen Neg (NEG) Urine Cannabinoids Screen Neg (NEG) Urine Ethyl Alcohol Neg (NEG) Test 05/21/16 08:01 05/21/16 10:46 05/21/16 16:41 05/21/16 20:09 Glucose (Fingerstick) 230mg/dL (70-99) 290mg/dL (70-99) 274mg/dL (70-99) 295mg/dL (70-99) Test 05/22/16 03:30 05/22/16 05:00 05/22/16 07:21 05/22/16 11:42 White Blood Count 8.6x10^3/uL (4.0-11.0) Red Blood Count 4.47x10^6/uL (3.50-5.40) Hemoglobin 13.9g/dL (12.0-15.5) Hematocrit 41.1% (36.0-47.0) Mean Corpuscular Volume 92fL (79-100) Mean Corpuscular Hemoglobin 31pg (25-35) Mean Corpuscular Hemoglobin Concent 34g/dL (31-37) Red Cell Distribution Width 12.6% (11.5-14.5) Platelet Count 207x10^3/uL (140-400) Neutrophils (%) (Auto) 62% (31-73) Lymphocytes (%) (Auto) 29% (24-48) Monocytes (%) (Auto) 7% (0-9) Eosinophils (%) (Auto) 2% (0-3) Basophils (%) (Auto) 1% (0-3) Neutrophils # (Auto) 5.3x10^3uL (1.8-7.7) Lymphocytes # (Auto) 2.5x10^3/uL (1.0-4.8) Monocytes # (Auto) 0.6x10^3/uL (0.0-1.1) Eosinophils # (Auto) 0.1x10^3/uL (0.0-0.7) Basophils # (Auto) 0.1x10^3/uL (0.0-0.2) Sodium Level 140mmol/L (136-145) Potassium Level 4.1mmol/L (3.5-5.1) Chloride Level 104mmol/L (98-107) Carbon Dioxide Level 28mmol/L (21-32) Anion Gap 8 (6-14) Blood Urea Nitrogen 18mg/dL (7-20) Creatinine 0.6mg/dL (0.6-1.0) Estimated GFR (Cockcroft-Gault) 105.4 Glucose Level 238mg/dL (70-99) Calcium Level 9.0mg/dL (8.5-10.1) Thyroid Stimulating Hormone (TSH) 0.589uIU/mL (0.358-3.74) Free Thyroxine 1.25ng/dL (0.76-1.46) Triglycerides Level 176mg/dL (0-150) Cholesterol Level 133mg/dL (0-200) LDL Cholesterol, Calculated 62mg/dL (0-100) VLDL Cholesterol, Calculated 35mg/dL (0-40) HDL Cholesterol 36mg/dL (40-60) Cholesterol/HDL Ratio 3.7 Glucose (Fingerstick) 214mg/dL (70-99) 244mg/dL (70-99) Laboratory Tests Test 05/21/16 16:41 05/21/16 20:09 05/22/16 03:30 05/22/16 05:00 Glucose (Fingerstick) 274mg/dL (70-99) 295mg/dL (70-99) White Blood Count 8.6x10^3/uL (4.0-11.0) Red Blood Count 4.47x10^6/uL (3.50-5.40) Hemoglobin 13.9g/dL (12.0-15.5) Hematocrit 41.1% (36.0-47.0) Mean Corpuscular Volume 92fL (79-100) Mean Corpuscular Hemoglobin 31pg (25-35) Mean Corpuscular Hemoglobin Concent 34g/dL (31-37) Red Cell Distribution Width 12.6% (11.5-14.5) Platelet Count 207x10^3/uL (140-400) Neutrophils (%) (Auto) 62% (31-73) Lymphocytes (%) (Auto) 29% (24-48) Monocytes (%) (Auto) 7% (0-9) Eosinophils (%) (Auto) 2% (0-3) Basophils (%) (Auto) 1% (0-3) Neutrophils # (Auto) 5.3x10^3uL (1.8-7.7) Lymphocytes # (Auto) 2.5x10^3/uL (1.0-4.8) Monocytes # (Auto) 0.6x10^3/uL (0.0-1.1) Eosinophils # (Auto) 0.1x10^3/uL (0.0-0.7) Basophils # (Auto) 0.1x10^3/uL (0.0-0.2) Sodium Level 140mmol/L (136-145) Potassium Level 4.1mmol/L (3.5-5.1) Chloride Level 104mmol/L (98-107) Carbon Dioxide Level 28mmol/L (21-32) Anion Gap 8 (6-14) Blood Urea Nitrogen 18mg/dL (7-20) Creatinine 0.6mg/dL (0.6-1.0) Estimated GFR (Cockcroft-Gault) 105.4 Glucose Level 238mg/dL (70-99) Calcium Level 9.0mg/dL (8.5-10.1) Thyroid Stimulating Hormone (TSH) 0.589uIU/mL (0.358-3.74) Free Thyroxine 1.25ng/dL (0.76-1.46) Triglycerides Level 176mg/dL (0-150) Cholesterol Level 133mg/dL (0-200) LDL Cholesterol, Calculated 62mg/dL (0-100) VLDL Cholesterol, Calculated 35mg/dL (0-40) HDL Cholesterol 36mg/dL (40-60) Cholesterol/HDL Ratio 3.7 Test 05/22/16 07:21 05/22/16 11:42 Glucose (Fingerstick) 214mg/dL (70-99) 244mg/dL (70-99) Microbiology 05/20/16 Urine Culture - Preliminary, Resulted 05/20/16 Urine Culture Result 1 (ERWIN) - Preliminary, Resulted Medications Current Medications Iohexol (Omnipaque 350 Mg/ml) 90 ml 1X ONCE IV ; Start 05/20/16 at 23:30; Stop 05/20/16 at 23:31; Status DC Info (Do NOT chart on this entry -- for MONITORING) 1 each PRN DAILY PRN MC SEE COMMENTS; Start 05/20/16 at 23:15; Stop 05/22/16 at 23:14 Aspirin (Children'S Aspirin) 324 mg 1X ONCE PO Last administered on 05/21/16t 00:43; Start 05/21/16 at 01:00; Stop 05/21/16 at 01:01; Status DC Nitroglycerin (Nitrostat) 0.4 mg PRN Q5MIN PRN SL CHEST PAIN; Start 05/21/16 at 00:30; Stop 05/21/16 at 01:02; Status DC Fentanyl Citrate (Fentanyl 2ml Vial) 25 mcg PRN Q15MIN PRN IV PAIN GREATER THAN 3/10; Start 05/21/16 at 00:30; Stop 05/22/16 at 00:29; Status DC Ondansetron HCl (Zofran) 4 mg PRN Q8HRS PRN IV NAUSEA/VOMITING; Start 05/21/16 at 01:00; Stop 05/21/16 at 14:37; Status DC Acetaminophen (Tylenol) 650 mg PRN Q4HRS PRN PO FEVER; Start 05/21/16 at 01:00 ; Stop 05/21/16 at 14:37; Status DC Nitroglycerin (Nitrostat) 0.4 mg PRN Q5MIN PRN SL CHEST PAIN; Start 05/21/16 at 01:00 Insulin Aspart (Novolog) 0-5 UNITS TIDWMEALS SQ ; Start 05/21/16 at 08:00; Stop 05/21/16 at 10:22; Status DC Dextrose 12.5 gm PRN Q15MIN PRN IV SEE COMMENTS; Start 05/21/16 at 01:00; Stop 05/21/16 at 10:22; Status DC Info (Do NOT chart on this placeholder) 1X ONCE MC ; Start 05/21/16 at 02:00; Stop 05/21/16 at 02:01; Status UNV Pneumococcal Polyvalent Vaccine (Do NOT chart on this placeholder) 1X ONCE MC ; Start 05/21/16 at 02:00; Stop 05/21/16 at 02:01; Status UNV Influenza Virus Vaccine Quadrival (Fluarix Quad [id number] Syringe) 0.5 ml ONCE ONCE VAX IM ; Start 05/21/16 at 09:00; Stop 05/21/16 at 09:01; Status DC Pneumococcal Polyvalent Vaccine (Pneumovax 23) 0.5 ml ONCE ONCE VAX IM ; Start 05/21/16 at 09:00; Stop 05/21/16 at 09:01; Status DC Atorvastatin Calcium (Lipitor) 10 mg HS PO Last administered on 05/21/16 20:10 ; Start 05/21/16 at 21:00 Glimepiride (Amaryl) 4 mg BID PO Last administered on 05/22/16 08:36; Start at 21:00 Losartan Potassium (Cozaar) 100 mg DAILY PO Last administered on 05/22/16 08: 37; Start 05/21/16 at 11:00 Linagliptin (Tradjenta) 5 mg DAILY PO Last administered on 05/22/16 08:36; Start 05/21/16 at 11:00 Aspirin (Children'S Aspirin) 81 mg DAILYWBKFT PO Last administered on 08:37; Start 05/21/16 at 11:00 Insulin Detemir (Levemir) 25 units BID SQ Last administered on 05/22/16 08:40 ; Start 05/21/16 at 11:00; Stop 05/22/16 at 13:07; Status DC Insulin Aspart (Novolog) 0-9 UNITS QIDACHS SQ Last administered on 05/22/16 12 :48; Start 05/21/16 at 11:30 Dextrose 12.5 gm PRN Q15MIN PRN IV SEE COMMENTS; Start 05/21/16 at 10:30 Insulin Aspart (Novolog) 5 units TIDAC SQ Last administered on 05/22/16 12:49 ; Start 05/21/16 at 11:30 Acetaminophen (Tylenol) 650 mg PRN Q6HRS PRN PO MILD PAIN / TEMP; Start at 10:30 Ondansetron HCl (Zofran) 4 mg PRN Q6HRS PRN IV NAUSEA/VOMITING; Start 05/21/16 at 10:30 Hydralazine HCl (Apresoline) 10 mg PRN Q4HRS PRN IVP ELEVATED BP, SEE COMMENTS ; Start 05/21/16 at 13:45 Albuterol Sulfate (Ventolin Neb Soln) 2.5 mg PRN Q4HRS PRN NEB SHORTNESS OF BREATH; Start 05/21/16 at 13:45 Guaifenesin (Mucinex) 600 mg BID PO Last administered on 05/22/16 08:37; Start 05/21/16 at 14:30 Enoxaparin Sodium (Lovenox 40mg Syringe) 40 mg Q24H SQ Last administered on 17:24; Start 05/21/16 at 15:00 Insulin Detemir (Levemir) 30 units BID SQ ; Start 05/22/16 at 21:00 Active Scripts Active Reported Levemir Flextouch (Insulin Detemir) 100 Unit/1 Ml Insuln.pen 20 Unit SQ HS Levemir Flextouch (Insulin Detemir) 100 Unit/1 Ml Insuln.pen 25 Unit SQ DAILY Januvia (Sitagliptin Phosphate) 100 Mg Tablet 1 Tab PO DAILY Azithromycin Tablet (Azithromycin) 250 Mg Tablet 1 Pkg PO 1X LAST DOSE TODAY Atorvastatin Calcium 10 Mg Tablet 1 Tab PO DAILY Benicar (Olmesartan Medoxomil) 40 Mg Tablet 40 Mg PO DAILY Levemir (Insulin Detemir) 100 Unit/1 Ml Vial 12 Unit SQ DAILY Glimepiride 2 Mg Tablet 4 Mg PO BID Vitals/I & O Vital Sign - Last 24 Hours 05/21/16 05/21/16 05/21/16 05/22/16 18:50 19:41 22:43 03:15 Temp 97.9 97.9 98.0 97.9 97.9 98.0 Pulse 69 62 57 Resp 18 18 B/P 126/78 102/51 115/52 Pulse Ox 94 98 96 O2 Delivery Room Air Room Air Room Air Room Air 05/22/16 05/22/16 05/22/16 05/22/16 07:10 07:18 08:37 11:32 Temp 98.4 98.2 98.4 98.2 Pulse 63 73 58 Resp 18 18 B/P 171/68 134/63 142/83 Pulse Ox 96 97 O2 Delivery Room Air Room Air Room Air Intake and Output 05/21/16 05/21/16 05/22/16 15:00 23:00 07:00 Intake Total 400 ml Balance 400 ml NIESHA BEARDEN MD May 22, 2016 15:32
[2016-05-22] MEDS: ENOXAPARIN 40 MG/0.4 ML DISP.SYRIN. SQ SCH (16:45)
[2016-05-22 19:00] VITALS: BP 163/77
[2016-05-22] MEDS: ATORVASTATIN CALCIUM 10 MG TABLET. PO SCH (20:45)
[2016-05-22 22:44] VITALS: BP 145/73
[2016-05-23 04:00] VITALS: BP 139/74
[2016-05-23 07:46] VITALS: BP 117/60
[2016-05-23] MEDS: ASPIRIN 81 MG TAB.CHEW PO SCH (07:55)
[2016-05-23] MEDS: GLIMEPIRIDE 2 MG TABLET PO SCH (07:55)
[2016-05-23] MEDS: LINAGLIPTIN 5 MG TABLET PO SCH (07:55)
[2016-05-23] MEDS: INSULIN ASPART 300 UNITS/3 ML INSULN.PEN SQ SCH ×4 (07:58→12:53)
--- NOTE | 2016-05-23 08:37 | PDOC ---
PROGRESS NOTES Chief Complaint Chief Complaint 1. Chest pain, likely 2/2 muscular pain 2. Uncontrolled DM2 HBA1C 3. HTN 4. HLP 5. Sinus lawanda cardia, 6. GERD 7. MORBID obesity 8. EARL 9. Mild malnutrition 10. SIRS wo infection 11. left thyroid nodule 7mm on CT, Plan asymptomatic Bradycardia resolved, Echo Normal LVEF BS not controlled. labs reviewed, anticipated DC today if cleared by cardiology. History of Present Illness History of Present Illness lawanda after midnight 30-40s still hyperglycemia, no chest pain Vitals Vitals Vital Signs Date Time Temp Pulse Resp B/P Pulse Ox O2 Delivery O2 Flow Rate FiO2 05/23/16 07:46 97.6 77 19 117/60 96 Room Air 97.6 05/22/16 20:00 1.0 Physical Exam General: Alert, Oriented X3, Cooperative Heart: Regular rate, Normal S1, Normal S2, Other Lungs: Clear Abdomen: Normal bowel sounds, Soft Extremities: No edema Labs LABS Laboratory Tests Test 05/22/16 11:42 05/22/16 16:44 05/22/16 20:44 Glucose (Fingerstick) 244mg/dL (70-99) 290mg/dL (70-99) 310mg/dL (70-99) Assessment and Plan Assessmemt and Plan Problems Medical Problems: (1) Chest pain Status: Acute (2) Dizziness Status: Acute (3) Extremity numbness Status: Acute Problems: Comment Review of Relevant I have reviewed the following items lisa (where applicable) has been applied. Labs Laboratory Tests Test 05/21/16 10:46 05/21/16 16:41 05/21/16 20:09 05/22/16 03:30 Glucose (Fingerstick) 290mg/dL (70-99) 274mg/dL (70-99) 295mg/dL (70-99) White Blood Count 8.6x10^3/uL (4.0-11.0) Red Blood Count 4.47x10^6/uL (3.50-5.40) Hemoglobin 13.9g/dL (12.0-15.5) Hematocrit 41.1% (36.0-47.0) Mean Corpuscular Volume 92fL (79-100) Mean Corpuscular Hemoglobin 31pg (25-35) Mean Corpuscular Hemoglobin Concent 34g/dL (31-37) Red Cell Distribution Width 12.6% (11.5-14.5) Platelet Count 207x10^3/uL (140-400) Neutrophils (%) (Auto) 62% (31-73) Lymphocytes (%) (Auto) 29% (24-48) Monocytes (%) (Auto) 7% (0-9) Eosinophils (%) (Auto) 2% (0-3) Basophils (%) (Auto) 1% (0-3) Neutrophils # (Auto) 5.3x10^3uL (1.8-7.7) Lymphocytes # (Auto) 2.5x10^3/uL (1.0-4.8) Monocytes # (Auto) 0.6x10^3/uL (0.0-1.1) Eosinophils # (Auto) 0.1x10^3/uL (0.0-0.7) Basophils # (Auto) 0.1x10^3/uL (0.0-0.2) Sodium Level 140mmol/L (136-145) Potassium Level 4.1mmol/L (3.5-5.1) Chloride Level 104mmol/L (98-107) Carbon Dioxide Level 28mmol/L (21-32) Anion Gap 8 (6-14) Blood Urea Nitrogen 18mg/dL (7-20) Creatinine 0.6mg/dL (0.6-1.0) Estimated GFR (Cockcroft-Gault) 105.4 Glucose Level 238mg/dL (70-99) Hemoglobin A1c 10.8% (4.8-5.6) Calcium Level 9.0mg/dL (8.5-10.1) Thyroid Stimulating Hormone (TSH) 0.589uIU/mL (0.358-3.74) Free Thyroxine 1.25ng/dL (0.76-1.46) Test 05/22/16 05:00 05/22/16 07:21 05/22/16 11:42 05/22/16 16:44 Triglycerides Level 176mg/dL (0-150) Cholesterol Level 133mg/dL (0-200) LDL Cholesterol, Calculated 62mg/dL (0-100) VLDL Cholesterol, Calculated 35mg/dL (0-40) HDL Cholesterol 36mg/dL (40-60) Cholesterol/HDL Ratio 3.7 Glucose (Fingerstick) 214mg/dL (70-99) 244mg/dL (70-99) 290mg/dL (70-99) Test 05/22/16 20:44 Glucose (Fingerstick) 310mg/dL (70-99) Laboratory Tests Test 05/22/16 11:42 05/22/16 16:44 05/22/16 20:44 Glucose (Fingerstick) 244mg/dL (70-99) 290mg/dL (70-99) 310mg/dL (70-99) Microbiology 05/20/16 Urine Culture - Final, Complete 05/20/16 Urine Culture Result 1 (ERWIN) - Final, Complete Medications Current Medications Iohexol (Omnipaque 350 Mg/ml) 90 ml 1X ONCE IV ; Start 05/20/16 at 23:30; Stop 05/20/16 at 23:31; Status DC Info (Do NOT chart on this entry -- for MONITORING) 1 each PRN DAILY PRN MC SEE COMMENTS; Start 05/20/16 at 23:15; Stop 05/22/16 at 23:14; Status DC Aspirin (Children'S Aspirin) 324 mg 1X ONCE PO Last administered on 05/21/16t 00:43; Start 05/21/16 at 01:00; Stop 05/21/16 at 01:01; Status DC Nitroglycerin (Nitrostat) 0.4 mg PRN Q5MIN PRN SL CHEST PAIN; Start 05/21/16 at 00:30; Stop 05/21/16 at 01:02; Status DC Fentanyl Citrate (Fentanyl 2ml Vial) 25 mcg PRN Q15MIN PRN IV PAIN GREATER THAN 3/10; Start 05/21/16 at 00:30; Stop 05/22/16 at 00:29; Status DC Ondansetron HCl (Zofran) 4 mg PRN Q8HRS PRN IV NAUSEA/VOMITING; Start 05/21/16 at 01:00; Stop 05/21/16 at 14:37; Status DC Acetaminophen (Tylenol) 650 mg PRN Q4HRS PRN PO FEVER; Start 05/21/16 at 01:00 ; Stop 05/21/16 at 14:37; Status DC Nitroglycerin (Nitrostat) 0.4 mg PRN Q5MIN PRN SL CHEST PAIN; Start 05/21/16 at 01:00 Insulin Aspart (Novolog) 0-5 UNITS TIDWMEALS SQ ; Start 05/21/16 at 08:00; Stop 05/21/16 at 10:22; Status DC Dextrose 12.5 gm PRN Q15MIN PRN IV SEE COMMENTS; Start 05/21/16 at 01:00; Stop 05/21/16 at 10:22; Status DC Info (Do NOT chart on this placeholder) 1X ONCE MC ; Start 05/21/16 at 02:00; Stop 05/21/16 at 02:01; Status UNV Pneumococcal Polyvalent Vaccine (Do NOT chart on this placeholder) 1X ONCE MC ; Start 05/21/16 at 02:00; Stop 05/21/16 at 02:01; Status UNV Influenza Virus Vaccine Quadrival (Fluarix Quad [id number] Syringe) 0.5 ml ONCE ONCE VAX IM ; Start 05/21/16 at 09:00; Stop 05/21/16 at 09:01; Status DC Pneumococcal Polyvalent Vaccine (Pneumovax 23) 0.5 ml ONCE ONCE VAX IM ; Start 05/21/16 at 09:00; Stop 05/21/16 at 09:01; Status DC Atorvastatin Calcium (Lipitor) 10 mg HS PO Last administered on 05/22/16 20:45 ; Start 05/21/16 at 21:00 Glimepiride (Amaryl) 4 mg BID PO Last administered on 05/23/16 07:55; Start at 21:00 Losartan Potassium (Cozaar) 100 mg DAILY PO Last administered on 05/22/16 08: 37; Start 05/21/16 at 11:00 Linagliptin (Tradjenta) 5 mg DAILY PO Last administered on 05/23/16 07:55; Start 05/21/16 at 11:00 Aspirin (Children'S Aspirin) 81 mg DAILYWBKFT PO Last administered on 07:55; Start 05/21/16 at 11:00 Insulin Detemir (Levemir) 25 units BID SQ Last administered on 05/22/16 08:40 ; Start 05/21/16 at 11:00; Stop 05/22/16 at 13:07; Status DC Insulin Aspart (Novolog) 0-9 UNITS QIDACHS SQ Last administered on 05/23/16 08 :00; Start 05/21/16 at 11:30 Dextrose 12.5 gm PRN Q15MIN PRN IV SEE COMMENTS; Start 05/21/16 at 10:30 Insulin Aspart (Novolog) 5 units TIDAC SQ Last administered on 05/22/16 16:30 ; Start 05/21/16 at 11:30; Stop 05/22/16 at 19:37; Status DC Acetaminophen (Tylenol) 650 mg PRN Q6HRS PRN PO MILD PAIN / TEMP; Start at 10:30 Ondansetron HCl (Zofran) 4 mg PRN Q6HRS PRN IV NAUSEA/VOMITING; Start 05/21/16 at 10:30 Hydralazine HCl (Apresoline) 10 mg PRN Q4HRS PRN IVP ELEVATED BP, SEE COMMENTS ; Start 05/21/16 at 13:45 Albuterol Sulfate (Ventolin Neb Soln) 2.5 mg PRN Q4HRS PRN NEB SHORTNESS OF BREATH; Start 05/21/16 at 13:45 Guaifenesin (Mucinex) 600 mg BID PO Last administered on 05/22/16 20:45; Start 05/21/16 at 14:30 Enoxaparin Sodium (Lovenox 40mg Syringe) 40 mg Q24H SQ Last administered on 16:45; Start 05/21/16 at 15:00 Insulin Detemir (Levemir) 30 units BID SQ Last administered on 05/22/16 20:51 ; Start 05/22/16 at 21:00 Insulin Aspart (Novolog) 10 units TIDAC SQ Last administered on 05/23/16 07:58 ; Start 05/23/16 at 07:30 Active Scripts Active Reported Levemir Flextouch (Insulin Detemir) 100 Unit/1 Ml Insuln.pen 20 Unit SQ HS Levemir Flextouch (Insulin Detemir) 100 Unit/1 Ml Insuln.pen 25 Unit SQ DAILY Januvia (Sitagliptin Phosphate) 100 Mg Tablet 1 Tab PO DAILY Azithromycin Tablet (Azithromycin) 250 Mg Tablet 1 Pkg PO 1X LAST DOSE TODAY Atorvastatin Calcium 10 Mg Tablet 1 Tab PO DAILY Benicar (Olmesartan Medoxomil) 40 Mg Tablet 40 Mg PO DAILY Levemir (Insulin Detemir) 100 Unit/1 Ml Vial 12 Unit SQ DAILY Glimepiride 2 Mg Tablet 4 Mg PO BID Vitals/I & O Vital Sign - Last 24 Hours 05/22/16 05/22/16 05/22/16 05/22/16 08:37 11:32 15:15 19:00 Temp 98.2 97.6 98.1 98.2 97.6 98.1 Pulse 73 58 66 76 Resp 18 18 B/P 134/63 142/83 147/71 163/77 Pulse Ox 97 95 92 O2 Delivery Room Air Room Air Room Air 05/22/16 05/22/16 05/23/16 05/23/16 20:00 22:44 04:00 07:46 Temp 98.0 98.0 97.6 98.0 98.0 97.6 Pulse 71 62 77 Resp 19 B/P 145/73 139/74 117/60 Pulse Ox 97 96 96 O2 Delivery Room Air Room Air Room Air O2 Flow Rate 1.0 Intake and Output 05/22/16 05/22/16 05/23/16 15:00 23:00 07:00 Intake Total 1700 ml 300 ml Output Total 1100 ml 1400 ml 800 ml Balance -1100 ml 300 ml -500 ml ANAYELI BANDA MD May 23, 2016 08:36
[2016-05-23] MEDS: GUAIFENESIN ER 600 MG TABLET.ER PO SCH (10:11)
[2016-05-23] MEDS: LOSARTAN POTASSIUM 50 MG TABLET. PO SCH (10:11)
[2016-05-23] MEDS: INSULIN DETEMIR 300 UNITS/3 ML INSULN.PEN. SQ SCH (10:14)
--- NOTE | 2016-05-23 10:14 | PDOC ---
PROGRESS NOTES Subjective Subjective No new complaints today. Pt was in a good mood this morning and ready to go home. Pt was sitting in chair comfortably. Objective Objective Vital Signs Date Time Temp Pulse Resp B/P Pulse Ox O2 Delivery O2 Flow Rate FiO2 05/23/16 08:05 Room Air 05/23/16 07:46 97.6 77 19 117/60 96 97.6 05/22/16 20:00 1.0 Intake and Output 05/23/16 07:00 Intake Total 2000 ml Output Total 3300 ml Balance -1300 ml Intake Oral 2000 ml Output Urine Total 3300 ml Physical Exam Physical Exam No change in cardiac exam. No bradycardia overnight Assessment Assessment Problems Medical Problems: (1) Chest pain Status: Acute (2) Dizziness Status: Acute (3) Extremity numbness Status: Acute Plan Plan of Care Bradycardia Possible lawanda/tachy syndrome No change in current treatment Probable D/C today Comment Review of Relevant I have reviewed the following items lisa (where applicable) has been applied. Labs Laboratory Tests Test 05/21/16 10:46 05/21/16 16:41 05/21/16 20:09 05/22/16 03:30 Glucose (Fingerstick) 290mg/dL (70-99) 274mg/dL (70-99) 295mg/dL (70-99) White Blood Count 8.6x10^3/uL (4.0-11.0) Red Blood Count 4.47x10^6/uL (3.50-5.40) Hemoglobin 13.9g/dL (12.0-15.5) Hematocrit 41.1% (36.0-47.0) Mean Corpuscular Volume 92fL (79-100) Mean Corpuscular Hemoglobin 31pg (25-35) Mean Corpuscular Hemoglobin Concent 34g/dL (31-37) Red Cell Distribution Width 12.6% (11.5-14.5) Platelet Count 207x10^3/uL (140-400) Neutrophils (%) (Auto) 62% (31-73) Lymphocytes (%) (Auto) 29% (24-48) Monocytes (%) (Auto) 7% (0-9) Eosinophils (%) (Auto) 2% (0-3) Basophils (%) (Auto) 1% (0-3) Neutrophils # (Auto) 5.3x10^3uL (1.8-7.7) Lymphocytes # (Auto) 2.5x10^3/uL (1.0-4.8) Monocytes # (Auto) 0.6x10^3/uL (0.0-1.1) Eosinophils # (Auto) 0.1x10^3/uL (0.0-0.7) Basophils # (Auto) 0.1x10^3/uL (0.0-0.2) Sodium Level 140mmol/L (136-145) Potassium Level 4.1mmol/L (3.5-5.1) Chloride Level 104mmol/L (98-107) Carbon Dioxide Level 28mmol/L (21-32) Anion Gap 8 (6-14) Blood Urea Nitrogen 18mg/dL (7-20) Creatinine 0.6mg/dL (0.6-1.0) Estimated GFR (Cockcroft-Gault) 105.4 Glucose Level 238mg/dL (70-99) Hemoglobin A1c 10.8% (4.8-5.6) Calcium Level 9.0mg/dL (8.5-10.1) Thyroid Stimulating Hormone (TSH) 0.589uIU/mL (0.358-3.74) Free Thyroxine 1.25ng/dL (0.76-1.46) Test 05/22/16 05:00 05/22/16 07:21 05/22/16 11:42 05/22/16 16:44 Triglycerides Level 176mg/dL (0-150) Cholesterol Level 133mg/dL (0-200) LDL Cholesterol, Calculated 62mg/dL (0-100) VLDL Cholesterol, Calculated 35mg/dL (0-40) HDL Cholesterol 36mg/dL (40-60) Cholesterol/HDL Ratio 3.7 Glucose (Fingerstick) 214mg/dL (70-99) 244mg/dL (70-99) 290mg/dL (70-99) Test 05/22/16 20:44 Glucose (Fingerstick) 310mg/dL (70-99) Laboratory Tests Test 05/22/16 11:42 05/22/16 16:44 05/22/16 20:44 Glucose (Fingerstick) 244mg/dL (70-99) 290mg/dL (70-99) 310mg/dL (70-99) Microbiology 05/20/16 Urine Culture - Final, Complete 05/20/16 Urine Culture Result 1 (ERWIN) - Final, Complete Medications Current Medications Iohexol (Omnipaque 350 Mg/ml) 90 ml 1X ONCE IV ; Start 05/20/16 at 23:30; Stop 05/20/16 at 23:31; Status DC Info (Do NOT chart on this entry -- for MONITORING) 1 each PRN DAILY PRN MC SEE COMMENTS; Start 05/20/16 at 23:15; Stop 05/22/16 at 23:14; Status DC Aspirin (Children'S Aspirin) 324 mg 1X ONCE PO Last administered on 05/21/16t 00:43; Start 05/21/16 at 01:00; Stop 05/21/16 at 01:01; Status DC Nitroglycerin (Nitrostat) 0.4 mg PRN Q5MIN PRN SL CHEST PAIN; Start 05/21/16 at 00:30; Stop 05/21/16 at 01:02; Status DC Fentanyl Citrate (Fentanyl 2ml Vial) 25 mcg PRN Q15MIN PRN IV PAIN GREATER THAN 3/10; Start 05/21/16 at 00:30; Stop 05/22/16 at 00:29; Status DC Ondansetron HCl (Zofran) 4 mg PRN Q8HRS PRN IV NAUSEA/VOMITING; Start 05/21/16 at 01:00; Stop 05/21/16 at 14:37; Status DC Acetaminophen (Tylenol) 650 mg PRN Q4HRS PRN PO FEVER; Start 05/21/16 at 01:00 ; Stop 05/21/16 at 14:37; Status DC Nitroglycerin (Nitrostat) 0.4 mg PRN Q5MIN PRN SL CHEST PAIN; Start 05/21/16 at 01:00 Insulin Aspart (Novolog) 0-5 UNITS TIDWMEALS SQ ; Start 05/21/16 at 08:00; Stop 05/21/16 at 10:22; Status DC Dextrose 12.5 gm PRN Q15MIN PRN IV SEE COMMENTS; Start 05/21/16 at 01:00; Stop 05/21/16 at 10:22; Status DC Info (Do NOT chart on this placeholder) 1X ONCE MC ; Start 05/21/16 at 02:00; Stop 05/21/16 at 02:01; Status UNV Pneumococcal Polyvalent Vaccine (Do NOT chart on this placeholder) 1X ONCE MC ; Start 05/21/16 at 02:00; Stop 05/21/16 at 02:01; Status UNV Influenza Virus Vaccine Quadrival (Fluarix Quad [id number] Syringe) 0.5 ml ONCE ONCE VAX IM ; Start 05/21/16 at 09:00; Stop 05/21/16 at 09:01; Status DC Pneumococcal Polyvalent Vaccine (Pneumovax 23) 0.5 ml ONCE ONCE VAX IM ; Start 05/21/16 at 09:00; Stop 05/21/16 at 09:01; Status DC Atorvastatin Calcium (Lipitor) 10 mg HS PO Last administered on 05/22/16 20:45 ; Start 05/21/16 at 21:00 Glimepiride (Amaryl) 4 mg BID PO Last administered on 05/23/16 07:55; Start at 21:00 Losartan Potassium (Cozaar) 100 mg DAILY PO Last administered on 05/22/16 08: 37; Start 05/21/16 at 11:00 Linagliptin (Tradjenta) 5 mg DAILY PO Last administered on 05/23/16 07:55; Start 05/21/16 at 11:00 Aspirin (Children'S Aspirin) 81 mg [id number] PO Last administered on 07:55; Start 05/21/16 at 11:00 Insulin Detemir (Levemir) 25 units BID SQ Last administered on 05/22/16 08:40 ; Start 05/21/16 at 11:00; Stop 05/22/16 at 13:07; Status DC Insulin Aspart (Novolog) 0-9 UNITS QIDACHS SQ Last administered on 05/23/16 08 :00; Start 05/21/16 at 11:30 Dextrose 12.5 gm PRN Q15MIN PRN IV SEE COMMENTS; Start 05/21/16 at 10:30 Insulin Aspart (Novolog) 5 units TIDAC SQ Last administered on 05/22/16 16:30 ; Start 05/21/16 at 11:30; Stop 05/22/16 at 19:37; Status DC Acetaminophen (Tylenol) 650 mg PRN Q6HRS PRN PO MILD PAIN / TEMP; Start at 10:30 Ondansetron HCl (Zofran) 4 mg PRN Q6HRS PRN IV NAUSEA/VOMITING; Start 05/21/16 at 10:30 Hydralazine HCl (Apresoline) 10 mg PRN Q4HRS PRN IVP ELEVATED BP, SEE COMMENTS ; Start 05/21/16 at 13:45 Albuterol Sulfate (Ventolin Neb Soln) 2.5 mg PRN Q4HRS PRN NEB SHORTNESS OF BREATH; Start 05/21/16 at 13:45 Guaifenesin (Mucinex) 600 mg BID PO Last administered on 05/22/16 20:45; Start 05/21/16 at 14:30 Enoxaparin Sodium (Lovenox 40mg Syringe) 40 mg Q24H SQ Last administered on 16:45; Start 05/21/16 at 15:00 Insulin Detemir (Levemir) 30 units BID SQ Last administered on 05/22/16 20:51 ; Start 05/22/16 at 21:00 Insulin Aspart (Novolog) 10 units TIDAC SQ Last administered on 05/23/16 07:58 ; Start 05/23/16 at 07:30 Active Scripts Active Reported Levemir Flextouch (Insulin Detemir) 100 Unit/1 Ml Insuln.pen 20 Unit SQ HS Levemir Flextouch (Insulin Detemir) 100 Unit/1 Ml Insuln.pen 25 Unit SQ DAILY Januvia (Sitagliptin Phosphate) 100 Mg Tablet 1 Tab PO DAILY Azithromycin Tablet (Azithromycin) 250 Mg Tablet 1 Pkg PO 1X LAST DOSE TODAY Atorvastatin Calcium 10 Mg Tablet 1 Tab PO DAILY Benicar (Olmesartan Medoxomil) 40 Mg Tablet 40 Mg PO DAILY Levemir (Insulin Detemir) 100 Unit/1 Ml Vial 12 Unit SQ DAILY Glimepiride 2 Mg Tablet 4 Mg PO BID Vitals/I & O Vital Sign - Last 24 Hours 05/22/16 05/22/16 05/22/16 05/22/16 11:32 15:15 19:00 20:00 Temp 98.2 97.6 98.1 98.2 97.6 98.1 Pulse 58 66 76 Resp 18 18 B/P 142/83 147/71 163/77 Pulse Ox 97 95 92 O2 Delivery Room Air Room Air Room Air Room Air O2 Flow Rate 1.0 05/22/16 05/23/16 05/23/16 05/23/16 22:44 04:00 07:46 08:00 Temp 98.0 98.0 97.6 98.0 98.0 97.6 Pulse 71 62 77 Resp 24 19 B/P 145/73 139/74 117/60 Pulse Ox 97 96 96 O2 Delivery Room Air Room Air Room Air 05/23/16 08:05 O2 Delivery Room Air Intake and Output 05/22/16 05/22/16 05/23/16 15:00 23:00 07:00 Intake Total 1700 ml 300 ml Output Total 1100 ml 1400 ml 800 ml Balance -1100 ml 300 ml -500 ml NIESHA BEARDEN MD May 23, 2016 10:14
[2016-05-23 10:44] VITALS: BP 178/68
--- NOTE | 2016-05-24 06:14 | DS ---
DATE OF DISCHARGE: 05/23/2016 DISCHARGE DIAGNOSES: 1. Chest pain, likely musculoskeletal. 2. Uncontrolled diabetes mellitus, HbA1c more than 10. 3. Hypertension. 4. Hyperlipidemia. 5. Sinus bradycardia, stable. 6. Gastroesophageal reflux disease. 7. Morbid obesity. 8. Nonalcoholic steatohepatitis. 9. Mild malnutrition. 10. Systemic inflammatory response with throat infection. 11. Left thyroid nodule, [address] incidental finding reports. Echocardiogram showed left ventricular ejection fraction ____%. BRIEF HOSPITAL COURSE: A 50-year-old female patient admitted to the hospital for chest pain. During hospitalization, she was evaluated by Dr. Espinoza. The patient's symptoms suggestive of mostly musculoskeletal in nature. She had a CTA of the chest and pelvis, showed incidental finding of 7 mm left thyroid nodule and also she had an echocardiogram showed LV ejection fraction of ____%. During hospitalization, the patient had sinus bradycardia. Symptoms improved overnight with observation, without any intervention. Today, she is asymptomatic; however, her pressure was not controlled. The patient was educated to be compliant with diet and recommendations from the primary care doctor. She needs to address with primary care doctor about her left thyroid nodule and uncontrolled blood sugars. DISCHARGE EXAMINATION: GENERAL: Alert, oriented x 3. HEART: S1 and S2 present. LUNGS: Clear to auscultation. ABDOMEN: Soft, nontender, no organomegaly. EXTREMITIES: No edema. DISCHARGE DISPOSITION: Home. DISCHARGE CONDITION: Stable. FOLLOWUP: With primary care doctor and Dr. Espinoza. MEDICATIONS: Reviewed and reconciled. Please see MRAD. Total time spent for discharge 35 minutes for patient education, counseling, and coordination of care. ANAYELI BANDA MD DR: MAYRA/jillian JOB#: [id number] / [id number]
== END 2016-05-23 13:45 | disposition home or self-care (01) | DRG 313 ==
LOC: ER 20:54 → 2 NORTH 05-21 00:28
PROVIDERS: ADMIT Internal Medicine; ATTEND Internal Medicine
DX: R07.89 Other chest pain (principal); E44.1 Mild protein-calorie malnutrition; R00.1 Bradycardia, unspecified; E11.65 Type 2 diabetes mellitus with hyperglycemia; E04.1 Nontoxic single thyroid nodule; E66.01 Morbid (severe) obesity due to excess calories; E78.00 Pure hypercholesterolemia, unspecified; E78.5 Hyperlipidemia, unspecified; I10 Essential (primary) hypertension; J02.9 Acute pharyngitis, unspecified; K21.9 Gastro-esophageal reflux disease without esophagitis; K42.9 Umbilical hernia without obstruction or gangrene; K75.81 Nonalcoholic steatohepatitis (NASH); Z79.899 Other long term (current) drug therapy; Z79.82 Long term (current) use of aspirin; Z79.4 Long term (current) use of insulin; Z68.38 Body mass index [BMI] 38.0-38.9, adult; Z90.49 Acquired absence of other specified parts of digestive tract
CPT/HCPCS: 36415; 70450; 71010; 71275; 74174; 80048; 80053; 80061; 81001; 82947; 83036; 83690; 83880; 84439; 84443; 84484; 85027; 85610; 85730; 87086; 93005; 93306; G0481; J1650; J1815; 99285-25

== ENCOUNTER 2017-11-01 12:36 | Inpatient (IN) | payer OTHER ==
[2017-11-01 14:10] LABS: ADD MAN DIFF? NO
[2017-11-01 14:15] LABS: BASO # 0.1 x10^3/uL (0.0-0.2); BASO % 1 % (0-3); EOS % 0 % (0-3); HEMATOCRIT 39.3 % (36.0-47.0); HEMOGLOBIN 13.9 g/dL (12.0-15.5); LYMPH # 1.9 x10^3/uL (1.0-4.8); LYMPH % 20 % (24-48); MEAN CORPUSCULAR HEMOGLOBIN 32 pg (25-35); MEAN CORPUSCULAR HGB CONC 35 g/dL (31-37); MEAN CORPUSCULAR VOLUME 89 fL (79-100); MONO # 0.4 x10^3/uL (0.0-1.1); MONO % 5 % (0-9); NEUT # 7.4 x10^3uL (1.8-7.7); NEUT % 75 % (31-73); PLATELET COUNT 244 x10^3/uL (140-400); RED BLOOD COUNT 4.41 x10^6/uL (3.50-5.40); RED CELL DISTRIBUTION WIDTH 12.4 % (11.5-14.5); WHITE BLOOD COUNT 9.9 x10^3/uL (4.0-11.0)
[2017-11-01 14:16] LABS: BILIRUBIN,URINE NEGATIVE (NEG); CLARITY,URINE CLEAR; COLOR,URINE YELLOW; GLUCOSE,URINE 250 mg/dL (NEG); NITRITE,URINE NEGATIVE (NEG); PROTEIN,URINE NEGATIVE (NEG-TRACE)
[2017-11-01 14:34] LABS: BACTERIA,URINE MOD /HPF (0-FEW); RBC,URINE 0 /HPF (0-2); SQUAMOUS EPITHELIAL CELL,UR MOD /LPF
[2017-11-01 14:35] LABS: HYALINE CASTS, URINE FEW /HPF
[2017-11-01 14:36] LABS: ANION GAP 5 (6-14); BLOOD UREA NITROGEN 23 mg/dL (7-20); BUN/CREATININE RATIO 26 (6-20); CALCIUM 9.2 mg/dL (8.5-10.1); CARBON DIOXIDE 31 mmol/L (21-32); CHLORIDE 101 mmol/L (98-107); CREATININE 0.9 mg/dL (0.6-1.0); GFR 65.8; GLUCOSE 252 mg/dL (70-99); POTASSIUM 4.3 mmol/L (3.5-5.1); SODIUM 137 mmol/L (136-145)
[2017-11-01] MEDS: ONDANSETRON PF 4 MG/2 ML VIAL. IV (14:38)
[2017-11-01] MEDS: MORPHINE SULFATE 4 MG/ML DISP.SYRIN. IV (14:39)
[2017-11-01 14:40] LABS: ALBUMIN 3.3 g/dL (3.4-5.0); ALBUMIN/GLOBULIN RATIO 0.7 (1.0-1.7); ALK PHOS 123 U/L (46-116); ALT (SGPT) 47 U/L (14-59); AST (SGOT) 22 U/L (15-37); BARBITURATES NEG (NEG); BENZODIAZEPINES NEG (NEG); CANNABINOIDS NEG (NEG); COCAINE NEG (NEG); DIRECT BILIRUBIN 0.1 mg/dL (0.0-0.2); METHADONE NEG (NEG); OPIATES NEG (NEG); PHENCYCLIDINE NEG (NEG); TOTAL BILIRUBIN 0.3 mg/dL (0.2-1.0); TOTAL PROTEIN 7.8 g/dL (6.4-8.2)
[2017-11-01 14:45] LABS: AMPHETAMINE/METHAMPHETAMINE NEG (NEG); ETHANOL, URINE NEG (NEG)
[2017-11-01 14:45] LABS: TROPONINI < 0.017 ng/mL (0.000-0.055)
[2017-11-01 14:47] LABS: CKMB INDEX 2.2 % (0-4); CKMB MASS 1.9 ng/mL (0.0-3.6); CREATINE KINASE 85 U/L (26-192)
[2017-11-01 14:48] LABS: THYROID STIM HORMONE (TSH) 0.871 uIU/mL (0.358-3.74)
[2017-11-01] MEDS ORDERED: fentaNYL PF VIAL 100 MCG/2 ML VIAL IV (16:30)
[2017-11-01] MEDS ORDERED: ONDANSETRON PF 4 MG/2 ML VIAL. IV (16:30)
[2017-11-01 20:54] LABS: POC GLUCOSE 277 mg/dL (70-99)
[2017-11-01] MEDS: ACETAMINOPHEN 325 MG TABLET. PO (21:06)
[2017-11-01] MEDS: ATORVASTATIN CALCIUM 10 MG TABLET. PO (21:06)
[2017-11-01] MEDS: GLIMEPIRIDE 2 MG TABLET. PO (21:07)
[2017-11-01] MEDS: amLODIPine BESYLATE 5 MG TABLET PO (21:07)
[2017-11-01] MEDS: GABAPENTIN 300 MG CAPSULE. PO (21:08)
[2017-11-01] MEDS: INSULIN GLARGINE 300 UNITS/3 ML INSULN.PEN. SQ (21:14)
[2017-11-01 22:58] LABS: TROPONINI < 0.017 ng/mL (0.000-0.055)
[2017-11-02 07:02] LABS: ADD MAN DIFF? NO
[2017-11-02 07:07] LABS: BASO % 1 % (0-3); EOS # 0.1 x10^3/uL (0.0-0.7); EOS % 2 % (0-3); HEMATOCRIT 38.5 % (36.0-47.0); HEMOGLOBIN 13.3 g/dL (12.0-15.5); LYMPH # 1.7 x10^3/uL (1.0-4.8); LYMPH % 26 % (24-48); MEAN CORPUSCULAR HEMOGLOBIN 31 pg (25-35); MEAN CORPUSCULAR HGB CONC 35 g/dL (31-37); MEAN CORPUSCULAR VOLUME 90 fL (79-100); MONO # 0.5 x10^3/uL (0.0-1.1); MONO % 7 % (0-9); NEUT # 4.4 x10^3uL (1.8-7.7); NEUT % 65 % (31-73); PLATELET COUNT 219 x10^3/uL (140-400); RED BLOOD COUNT 4.28 x10^6/uL (3.50-5.40); RED CELL DISTRIBUTION WIDTH 12.7 % (11.5-14.5); WHITE BLOOD COUNT 6.7 x10^3/uL (4.0-11.0)
[2017-11-02 07:38] LABS: ALBUMIN 2.9 g/dL (3.4-5.0); ALBUMIN/GLOBULIN RATIO 0.7 (1.0-1.7); ALK PHOS 153 U/L (46-116); ALT (SGPT) 187 U/L (14-59); ANION GAP 2 (6-14); AST (SGOT) 109 U/L (15-37); BLOOD UREA NITROGEN 18 mg/dL (7-20); BUN/CREATININE RATIO 26 (6-20); CARBON DIOXIDE 32 mmol/L (21-32); CHLORIDE 105 mmol/L (98-107); CREATININE 0.7 mg/dL (0.6-1.0); GFR 87.9; GLUCOSE 200 mg/dL (70-99); POTASSIUM 3.7 mmol/L (3.5-5.1); SODIUM 139 mmol/L (136-145); TOTAL BILIRUBIN 0.4 mg/dL (0.2-1.0)
[2017-11-02 08:05] LABS: POC GLUCOSE 184 mg/dL (70-99)
[2017-11-02] MEDS ORDERED: ONDANSETRON PF 4 MG/2 ML VIAL. IV (09:00)
[2017-11-02] MEDS ORDERED: DEXTROSE 50% 25 GM / 50ML DISP.SYRIN. IV (09:00)
[2017-11-02] MEDS: hydroCHLOROthiazide 25 MG TABLET PO (09:26)
[2017-11-02] MEDS: GLIMEPIRIDE 2 MG TABLET. PO ×2 (09:26→17:44)
[2017-11-02] MEDS: LOSARTAN POTASSIUM 25 MG TABLET. PO (09:26)
[2017-11-02] MEDS: ACETAMINOPHEN 325 MG TABLET. PO ×2 (09:26→19:46)
[2017-11-02] MEDS: LINAGLIPTIN 5 MG TABLET PO (09:27)
[2017-11-02] MEDS: amLODIPine BESYLATE 5 MG TABLET PO (09:27)
[2017-11-02] MEDS: INSULIN GLARGINE 300 UNITS/3 ML INSULN.PEN. SQ ×2 (09:34→21:34)
[2017-11-02 11:22] LABS: POC GLUCOSE 190 mg/dL (70-99)
[2017-11-02] MEDS: INSULIN LISPRO 300 UNITS/3 ML INSULN.PEN. SQ ×2 (12:11→17:48)
[2017-11-02 16:10] LABS: POC GLUCOSE 239 mg/dL (70-99)
[2017-11-02] MEDS: cefTRIAXone IV Push 1 GM VIAL. IVP (17:45)
[2017-11-02 21:22] LABS: POC GLUCOSE 264 mg/dL (70-99)
[2017-11-02] MEDS: ATORVASTATIN CALCIUM 10 MG TABLET. PO (21:30)
[2017-11-02] MEDS: GABAPENTIN 300 MG CAPSULE. PO (21:30)
[2017-11-03 02:19] LABS: HEMOGLOBIN A1C 7.8 % (4.8-5.6)
[2017-11-03 07:26] LABS: POC GLUCOSE 137 mg/dL (70-99)
[2017-11-03] MEDS: INSULIN LISPRO 300 UNITS/3 ML INSULN.PEN. SQ ×2 (08:00→12:00)
[2017-11-03] MEDS: LINAGLIPTIN 5 MG TABLET PO (08:45)
[2017-11-03] MEDS: GLIMEPIRIDE 2 MG TABLET. PO (08:45)
[2017-11-03] MEDS: hydroCHLOROthiazide 25 MG TABLET PO (08:46)
[2017-11-03] MEDS: LOSARTAN POTASSIUM 25 MG TABLET. PO (08:46)
[2017-11-03] MEDS: amLODIPine BESYLATE 5 MG TABLET PO (08:46)
[2017-11-03] MEDS: ACETAMINOPHEN 325 MG TABLET. PO ×2 (08:47→15:38)
[2017-11-03] MEDS: INSULIN GLARGINE 300 UNITS/3 ML INSULN.PEN. SQ (08:54)
[2017-11-03 11:26] LABS: POC GLUCOSE 330 mg/dL (70-99)
[2017-11-03 16:11] LABS: POC GLUCOSE 177 mg/dL (70-99)
== END 2017-11-03 17:30 | disposition home or self-care (01) | DRG 74 ==
LOC: ER 12:36 → 4 NORTH 16:17
DX: G90.8 Other disorders of autonomic nervous system (principal); N39.0 Urinary tract infection, site not specified; R55 Syncope and collapse; E78.00 Pure hypercholesterolemia, unspecified; R07.89 Other chest pain; F41.9 Anxiety disorder, unspecified; I10 Essential (primary) hypertension; E11.9 Type 2 diabetes mellitus without complications; W18.39XA Other fall on same level, initial encounter; Z79.4 Long term (current) use of insulin; Z90.49 Acquired absence of other specified parts of digestive tract; Z79.899 Other long term (current) drug therapy; Z91.19 Patient's noncompliance with other medical treatment and regimen; Y99.8 Other external cause status; Y92.89 Other specified places as the place of occurrence of the external cause; Y93.89 Activity, other specified
CPT/HCPCS: 36415; 70450; 71045; 72100; 72125; 73030; 80053; 80076; 80307; 81001; 82553; 82962; 83036; 84443; 84484; 85025; 85610; 93005; 93306; 96374; 96375; 99285; 99285-25; J0690; J0696; J1815; J2270; J2405